=== PATIENT | female | born 1955 | race Caucasian/White ===

== ENCOUNTER 2022-01-13 20:51 | Emergency (ER) | payer MEDICARE, OTHER, SELFPAY ==
[2022-01-13 20:58] VITALS: BP 162/83; PULSE 92; RESP 18; TEMP 36.7; O2SAT 97; BMI 29.2
== END 2022-01-14 00:38 | disposition left against medical advice (07) ==
PROVIDERS: Emergency Provider Emergency Medicine
DX: L03.116 Cellulitis of left lower limb (principal)
CPT/HCPCS: 99281

== ENCOUNTER 2022-01-15 07:28 | Observation (INO) | payer MEDICARE, OTHER, SELFPAY ==
[2022-01-15] VITALS (7 sets, daily range): BP systolic 96–144; BP diastolic 58–88; PULSE 63–78; RESP 16–18; TEMP 36.1–36.9; O2SAT 94–98; BMI 29.2
[2022-01-15 08:30] LABS: MANUAL DIFF FLAG NO
[2022-01-15 08:34] LABS: Basophils Percent Auto 0.2 % (0-2); Eosinophils Absolute Auto 0.3 X10*3/uL (0.0-0.4); Eosinophils Percent Auto 6.2 % (0-4); Hematocrit 43.2 % (37.0-47.0); Hemoglobin 14.5 g/dl (12.0-16.0); Imm Gran Abs Auto 0.01 X10*3/uL (0.00-0.03); Imm Gran Pct Auto 0.2 % (0.0-0.4); Lymphocytes Percent Auto 22.2 % (20-40); Mean Corpuscular HGB Conc 33.6 g/dl (31.0-35.0); Mean Corpuscular Hemoglobin 28.8 pg (27.0-33.0); Mean Corpuscular Volume 85.7 fL (80.0-98.0); Mean Platelet Volume 9.5 fL (9.4-12.3); Monocytes Absolute Auto 0.4 X10*3/uL (0.1-1.2); Monocytes Percent Auto 9.2 % (2-11); Neutrophils Absolute Auto 2.7 x10*3/uL (2.0-8.3); Platelet Count 201 X10*3/uL (160-400); Red Blood Count 5.04 X10*6/uL (4.20-5.50); Red Cell Distribution Width 13.4 % (11.0-16.0); White Blood Count 4.4 X10*3/uL (4.8-10.8)
[2022-01-15 08:45] LABS: Anion Gap 13 (12-20); Blood Urea Nitrogen 12 mg/dL (9-16); Calcium 9.5 mg/dL (8.4-10.2); Carbon Dioxide 27 mmol/L (22-29); Chloride 105 mmol/L (96-108); Creatinine Clr Calc Pharmacy 47.8; Estimated Glomerular Filt Rate 57; Glucose Random 114 mg/dL (60-115); Potassium 4.1 mmol/L (3.3-5.1); Sodium 141 mmol/L (135-145)
--- NOTE | 2022-01-15 08:45 | ED_ITS ---
HPI - Skin/Abscess/Foreign Bdy General Chief complaint: Extremity Problem Stated complaint: infected bug bite Time Seen by Provider: 01/15/22 08:39 Source: patient Mode of arrival: ambulatory Limitations: no limitations History of Present Illness HPI narrative: 66 yo female with no medical history who presents to the ER for evaluation of a infected bug bite on the medial aspect of her left knee. She reports on Thursday afternoon she was sitting in her backyard reading a book when she all of a sudden noticed of very painful bug bite to the inside of her left knee. She smacked the bug, thinks she got bit again. She did not see with the bug was. She denies any resemblance of a tick left inside the bite. She almost immediately developed redness to the area. She reports when she woke up Thursday morning and the redness had spread to the back of her knee, and there is starting to developed fluid-filled bullae. She left work on Thursday and went to an urgent care where she was prescribed Bactrim and Keflex. She has been taking them and the infection has gotten worse. She now reports there is a large flu id-filled bulla with what appears to be pus and blood inside of it. She reports the redness is spreading. She denies any fever or chills. No nausea or vomiting MD complaint: insect bite/sting and abscess/boil Onset (ago): day(s) (4) Tetanus up to date: yes Location: LLE Severity: moderate Severity scale (1-10): 6 Quality: stabbing and aching Pain Consistency: constant Relieving factors: none Exacerbating factors: palpation and movement Context: witnessed insect bite Associated symptoms: itching Treatments prior to arrival: antibiotic Related Data Allergies Allergy/AdvReac Type Severity Reaction Status Date / Time No Known Allergies Allergy Verified 01/15/22 08:08 Review of Systems Review of Systems: Constitutional: No Fever, No Chills ENT/Mouth: No sore throat, No Rhinorrhea, No Swallowing Difficulty Eyes: No Eye Pain, No Swelling, No Redness Cardiovascular: No Chest Pain, No SOB, No Orthopnea, No Edema Respiratory: No Cough, No Sputum, No Wheezing, No dyspnea Gastrointestinal: No Nausea, No Vomiting, No Diarrhea, No abdominal Pain, No Hematochezia, No Melena Genitourinary: No Dysuria, No Urinary Frequency, No Hematuria Musculoskeletal: No joint pain, +Myalgias Skin: + Skin Lesions, +rash Neuro: No Weakness, No Numbness, No Dizziness, + Headache Psych: No Anxiety/Panic, No Depression Heme/Lymph: No Bruising, No Lymphadenopathy Endocrine: No Polyuria, No Polydipsia PMFSH Past Medical History Surgical History (Updated 01/15/22 @ 09:01 by Laura Dubois) Hx of cholecystectomy Social History Social History Patient Tobacco Use Status: Never used Tobacco Use of substances other than those prescribed or required for medical reasons: No Advance Directives: No Advance Directives Information Provided: No Physical Exam Vital Signs: Vital Signs: Last Vital Signs Temp 98.4 F 01/15/22 08:09 Pulse 78 01/15/22 08:09 Resp 16 01/15/22 08:09 BP 131/75 01/15/22 08:09 Pulse Ox 95 01/15/22 08:09 O2 Del Method 01/15/22 08:09 BMI result Body Mass Index 29.2 Appearance: Alert. Oriented X3. No acute distress. Eyes: Pupils equal, round and reactive to light. ENT: Pharynx normal. Neck: Normal inspection. Neck supple. CVS: Normal heart rate and rhythm. Pulses normal. Respiratory: No respiratory distress. Breath sounds normal. Abdomen: Soft and nontender. +BS x4 Skin: Skin warm and dry. Normal skin color. Normal skin turgor. No rashes. Extremities: left lower extremity with a large area of erythema and warmth medial to left knee. 3 small fluid filled bulla with a large bulla with purlent material within and purple color at the base. leaking serious fluid. full ROM of the knee. NV intact distally. see photo Neuro: Oriented X 3. No motor deficit. No sensory deficit. Course Course Course Narrative: 58-year-old female presenting to the ER with infected bug bite, clinical presentation is consistent with cellulitis and infected fluid-filled bulla. She failed outpatient treatment with p.o. Keflex and Bactrim. She is not septic at this time. Given progression of her symptoms and infection on oral antibiotics she will require admission for IV antibiotics. Will attempt to drain the pus filled bulla. Case d/w Dr. Ty. Reevaluation(s) Reevaluation #1: Unsuccessful drainage of the pustule. Only serous fluid returned. Case was discussed with Dr. Lopez who will be by to surgically debride and roof the wound. Will plan for admission for IV antibiotics. Tick-borne panel sent. WBC 4.4. LFTs added. Consultations Consultation #1: Surgery - Dr. Lopez MDM - Skin/Abscess/Foreign Bdy Lab Data Result diagrams: 01/15/22 08:23 01/15/22 08:23 Labs: Lab Results 01/15/22 01/15/22 01/15/22 Range/Units 08:23 08:23 09:16 WBC 4.4 L (4.8-10.8) X10*3/uL RBC 5.04 (4.20-5.50) X10*6/uL Hgb 14.5 (12.0-16.0) g/dl Hct 43.2 (37.0-47.0) % MCV 85.7 (80.0-98.0) fL MCH 28.8 (27.0-33.0) pg MCHC 33.6 (31.0-35.0) g/dl RDW 13.4 (11.0-16.0) % Plt Count 201 (160-400) X10*3/uL MPV 9.5 (9.4-12.3) fL Immature Gran % (Auto) 0.2 (0.0-0.4) % Neut % (Auto) 62.0 (45-73) % Lymph % (Auto) 22.2 (20-40) % [place] % (Auto) 9.2 (2-11) % Eos % (Auto) 6.2 H (0-4) % Baso % (Auto) 0.2 (0-2) % Lymph # (Auto) 1.0 L (1.2-4.9) X10*3/uL [place] # (Auto) 0.4 (0.1-1.2) X10*3/uL Eos # (Auto) 0.3 (0.0-0.4) X10*3/uL Baso # (Auto) 0.0 (0.0-0.2) X10*3/uL Abs Immat Gran (auto) 0.01 (0.00-0.03) X10*3/uL Absolute Neuts (auto) 2.7 (2.0-8.3) x10*3/uL Absolute Nucleated RBC 0.000 (0.0-0.012) X10*3/uL Nucleated RBC % (auto) 0.0 (0.0-0.2) /100WBC Sodium 141 (135-145) mmol/L Potassium 4.1 (3.3-5.1) mmol/L Chloride 105 (96-108) mmol/L Carbon Dioxide 27 (22-29) mmol/L Anion Gap 13 (12-20) BUN 12 (9-16) mg/dL Creatinine 0.97 (0.5-1.4) mg/dL Estim Creat Clear Calc 47.8 Estimated GFR 57 Random Glucose 114 (60-115) mg/dL Lactic Acid 1.0 (0.5-2.0) mmol/L Calcium 9.5 (8.4-10.2) mg/dL COVID-19 ([facility]ALAN) (Negative) COVID-19 Clin Com 01/15/22 Range/Units 09:47 WBC (4.8-10.8) X10*3/uL RBC (4.20-5.50) X10*6/uL Hgb (12.0-16.0) g/dl Hct (37.0-47.0) % MCV (80.0-98.0) fL MCH (27.0-33.0) pg MCHC (31.0-35.0) g/dl RDW (11.0-16.0) % Plt Count (160-400) X10*3/uL MPV (9.4-12.3) fL Immature Gran % (Auto) (0.0-0.4) % Neut % (Auto) (45-73) % Lymph % (Auto) (20-40) % [place] % (Auto) (2-11) % Eos % (Auto) (0-4) % Baso % (Auto) (0-2) % Lymph # (Auto) (1.2-4.9) X10*3/uL [place] # (Auto) (0.1-1.2) X10*3/uL Eos # (Auto) (0.0-0.4) X10*3/uL Baso # (Auto) (0.0-0.2) X10*3/uL Abs Immat Gran (auto) (0.00-0.03) X10*3/uL Absolute Neuts (auto) (2.0-8.3) x10*3/uL Absolute Nucleated RBC (0.0-0.012) X10*3/uL Nucleated RBC % (auto) (0.0-0.2) /100WBC Sodium (135-145) mmol/L Potassium (3.3-5.1) mmol/L Chloride (96-108) mmol/L Carbon Dioxide (22-29) mmol/L Anion Gap (12-20) BUN (9-16) mg/dL Creatinine (0.5-1.4) mg/dL Estim Creat Clear Calc Estimated GFR Random Glucose (60-115) mg/dL Lactic Acid (0.5-2.0) mmol/L Calcium (8.4-10.2) mg/dL COVID-19 ([facility]ALAN) Negative (Negative) COVID-19 Clin Com See Note Procedures Abscess I/D Site: lower extremity Side (if applicable): left Technique: incised with blade Sent for culture/gram staining?: Yes Irrigation: Yes Packing used?: none Complications: pain Critical Care Time Critical Care Time Critical Care Time: No Discharge Plan Discharge Clinical Impression: Cellulitis, Bug bite with infection Patient Disposition: Admitted As Inpatient
[2022-01-15] MEDS: Piperacillin Sodium/Tazobactam 3.375 GM in 0.9 % Sodium Chloride 50 ML IV (09:24)
[2022-01-15] MEDS: Lidocaine 4 % Cream KIT 1 APPL TOPICAL (09:32)
[2022-01-15 10:16] LABS: COVID-19 Test Negative (Negative); IDNOW Serial# 16C4AD1C
--- NOTE | 2022-01-15 10:34 | PC.NURSE ---
henri for pharmacy to make the vancomycin
--- NOTE | 2022-01-15 10:56 | PHA.MEDREC ---
Pharmacy Consult ? Medication Reconciliation Pharmacy has completed the medication reconciliation. spoke with patient in ED. Patient started antibiotics on thursday01/13/22
--- NOTE | 2022-01-15 11:03 | P.CONGS_ITS ---
History of Present Illness Consult details Consult date: 01/15/22 Requesting physician: Shirley Toro Narrative: 66-year-old female patient status post insect bite to the medial right knee. She was outside at the time of the bite (Thursday) and immediately felt a sharp pinch. By insisting she slapped the insect and wiped it away. She could not identify the type of insect but did not feel he was spider. She suspects a white faced hornet. She immediately noted pain and swelling in the leg. On Thursday she was evaluated at the walk-in clinic. She was placed on Keflex. Over the next 2 days increased swelling and blistering was noted at the bite site. She also noted redness in the surrounding skin which brought her to the Emergency room today. She denies fever or chills. She is being admitted to the hospitalist service for IV antibiotics. Laboratories revealed WBC of 4.4 and lactic acid of 1.0. Review of Systems Review of Systems: Yes all other systems are reviewed and are negative Integumentary/Breasts: Skin/Breast: Reports as per [facility] Surgical History Surgical History Hx of cholecystectomy Social History Social History Patient Tobacco Use Status: Never used Tobacco Use of substances other than those prescribed or required for medical reasons: No Advance Directives: No Advance Directives Information Provided: No Meds Allergies Allergy/AdvReac Type Severity Reaction Status Date / Time No Known Allergies Allergy Verified 01/15/22 08:08 Active Medications: Current Medications Pharmacy Consult (Consult Rx Vancomycin Dosing) 1 each MISCELLANE DAILY PRN PRN Reason: Consult order Pharmacy Consult (Consult Rx Perform Med Rec) 1 each MISCELLANE ONCE PRN PRN Reason: Consult order Sodium Chloride (0.9 % Sodium Chloride Flush 3 Ml Syringe) 3 ml [facility] [place] Home Medications Medication Instructions Recorded Confirmed Last Taken Type cephalexin 500 mg capsule 1 cap PO BID 01/15/22 01/15/22 01/14/22 History cyanocobalamin (vitamin B-12) 1,000 mcg PO DAILY 01/15/22 01/15/22 01/14/22 History 1,000 mcg tablet sulfamethoxazole 800 1 tab PO BID 01/15/22 01/15/22 01/14/22 History mg-trimethoprim 160 mg tablet Physical Exam Vital Signs: Vital Signs: Last Vital Signs Temp 98.4 F 01/15/22 08:09 Pulse 78 01/15/22 08:09 Resp 16 01/15/22 08:09 BP 131/75 01/15/22 08:09 Pulse Ox 95 01/15/22 08:09 O2 Del Method 01/15/22 08:09 BMI result Body Mass Index 29.2 Const: General: no acute distress and well developed Nutritional Appearance: well nourished Orientation/consciousness: patient oriented x3 Limitations: no limitations HEENT: Head: Yes normocephalic and Yes atraumatic Ears: hearing grossly normal bilaterally Resp: Effort & Inspection: normal respiratory effort, no audible wheezes, no cough and no respiratory distress GI: Inspection: Yes normal to inspection Skin: Other: Warm, dry, rash in the left medial calf and thigh as noted below Neuro: General: patient oriented x3 Extrem: Knee images: 1. area of blistering and desquamated skin . No evidence of abscess 2. cellulitis surrounding the blistering. No necrotic skin identified. Results Labs Result diagrams: 01/15/22 08:23 01/15/22 08:23 Labs: Abnormal lab results 01/15/22 Range/Units 08:23 WBC 4.4 L (4.8-10.8) X10*3/uL Eos % (Auto) 6.2 H (0-4) % Lymph # (Auto) 1.0 L (1.2-4.9) X10*3/uL Short CBC 01/15/22 Range/Units 08:23 WBC 4.4 L (4.8-10.8) X10*3/uL Hgb 14.5 (12.0-16.0) g/dl Hct 43.2 (37.0-47.0) % Plt Count 201 (160-400) X10*3/uL BMP 01/15/22 08:23 Sodium 141 Potassium 4.1 Chloride 105 Carbon Dioxide 27 BUN 12 Creatinine 0.97 Calcium 9.5 All other labs normal. Assessment and Plan (1) Cellulitis: Status: Acute (2) Bug bite with infection: Status: Acute Plan 66-year-old female patient with probable insect bite possibly hornet by with resulting skin blistering and cellulitis. Agree with admission for IV antibiotics and further monitoring of the blister progression. An attempted incision and drainage was performed today with no abscess identified. This does appear to be more of a blister rather than abscess. No debridement is required at this time. I will monitor the wound and follow her after discharge. Procedures Date of Service Date of Service: 01/15/22
--- NOTE | 2022-01-15 11:06 | P.HPHOSP_ITS ---
History of Present Illness Date of Service: 01/15/22 Attending physician on admission: Broderick Childs Chief Complaint: cellulitis and abscess Patient without significant medical history with cellulitis and abscess to the medial left upper leg following insect bite 4 days ago being admitted for I&D and IV antibitoics. She reports being bit multiple times by an unknown insect after attempting to swap the bug away multiple times. Insect did not remain attached to skin. Redness around the bite progressively worsened and developed clear fluid filled blisters at the medial knee. She presented to an urgent care and where she was prescribed keflex and bactrim for cellulitis 2 days ago. Later that night she developed a larger fluid filled bulla with pus and blood. She presented that same night [place] [facility] but did not wait for evaluation. She has continued on the keflex and bactrim as prescribed with limited improvement in her symptoms. Feels the area is still swollen and tender with minimal improvement in the redness in bullae. States she felt warm but no true fevers. No rigors. She is able to ambulate. 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 No history of similar infections. No leukocytosis. Review of Systems Review of Systems: Yes all other systems are reviewed and are negative [facility] Medical History (Updated 01/15/22 @ 11:33 by SAURAV Rubio) No pertinent past medical history Family History (Updated 01/15/22 @ 11:34 by SAURAV Rubio) Mother Stroke Myocardial infarct Father Diabetes ESRD (end stage renal disease) Surgical History Hx of cholecystectomy Social History Patient Tobacco Use Status: Never used Tobacco Use of substances other than those prescribed or required for medical reasons: No Advance Directives: No Advance Directives Information Provided: No Meds Allergies Allergy/AdvReac Type Severity Reaction Status Date / Time No Known Allergies Allergy Verified 01/15/22 08:08 Active Medications: Current Medications Vancomycin HCl 1,000 mg/ (Sodium Chloride) 270 mls @ 270 mls/hr IV Q12H [facility] Pharmacy Consult (Consult Rx Vancomycin Dosing) 1 each MISCELLANE DAILY PRN PRN Reason: Consult order Pharmacy Consult (Consult Rx Perform Med Rec) 1 each MISCELLANE ONCE PRN PRN Reason: Consult order Pharmacy Consult (Consult Rx Vancomycin Dosing) 1 each MISCELLANE DAILY PRN PRN Reason: Consult order Sodium Chloride (0.9 % Sodium Chloride Flush 3 Ml Syringe) 3 ml IVFLUSH QSHIFT COUNT [facility] Home Medications Medication Instructions Recorded Confirmed Last Taken Type cephalexin 500 mg capsule 1 cap PO BID 01/15/22 01/15/22 01/14/22 History cyanocobalamin (vitamin B-12) 1,000 mcg PO DAILY 01/15/22 01/15/22 01/14/22 History 1,000 mcg tablet sulfamethoxazole 800 1 tab PO BID 01/15/22 01/15/22 01/14/22 History mg-trimethoprim 160 mg tablet Physical Exam Vital Signs and Narrative: Vital Signs: Last Vital Signs Temp 98.4 F 01/15/22 08:09 Pulse 78 01/15/22 08:09 Resp 16 01/15/22 08:09 BP 131/75 01/15/22 08:09 Pulse Ox 95 01/15/22 08:09 O2 Del Method 01/15/22 08:09 BMI result Body Mass Index 29.2 Const: Other: Constitutional - Awake and Alert, No apparent distress Eyes - PERRLA, EOMI Cardiovascular - S1S2, RRR, No edema Respiratory - Normal lung expansion, Normal respiratory effort, No respiratory distress, CTA bilaterally Gastrointestinal - NT / ND; +BS; No rebound or guarding - No CVA tenderness Extremities - no calf tenderness bilaterally, no swelling Musculoskeletal - Normal inspection, normal ROM Skin - Warm/Dry. See photo Neurological - Alert & oriented x3, No focal deficit Psychological - Appropriate affect Results Labs CBC and Chem 7: 01/15/22 08:23 01/15/22 08:23 Labs: Laboratory Results - last 24 hr 01/15/22 01/15/22 01/15/22 08:23 08:23 09:16 MCV 85.7 MCH 28.8 MCHC 33.6 RDW 13.4 Plt Count 201 MPV 9.5 Immature Gran % (Auto) 0.2 Neut % (Auto) 62.0 Lymph % (Auto) 22.2 [place] % (Auto) 9.2 Eos % (Auto) 6.2 H Baso % (Auto) 0.2 Lymph # (Auto) 1.0 L [place] # (Auto) 0.4 Eos # (Auto) 0.3 Baso # (Auto) 0.0 Abs Immat Gran (auto) 0.01 Absolute Neuts (auto) 2.7 Absolute Nucleated RBC 0.000 Nucleated RBC % (auto) 0.0 Anion Gap 13 Estim Creat Clear Calc 47.8 Estimated GFR 57 Random Glucose 114 Lactic Acid 1.0 Calcium 9.5 COVID-19 ([facility]AN) COVID-19 Clin Com 01/15/22 09:47 MCV MCH MCHC RDW Plt Count MPV Immature Gran % (Auto) Neut % (Auto) Lymph % (Auto) [place] % (Auto) Eos % (Auto) Baso % (Auto) Lymph # (Auto) [place] # (Auto) Eos # (Auto) Baso # (Auto) Abs Immat Gran (auto) Absolute Neuts (auto) Absolute Nucleated RBC Nucleated RBC % (auto) Anion Gap Estim Creat Clear Calc Estimated GFR Random Glucose Lactic Acid Calcium COVID-19 ([facility]ALAN) Negative COVID-19 Clin Com See Note Assessment and Plan (1) Cellulitis: Status: Acute (2) Bug bite with infection: Status: Acute Plan Patient without significant medical history admitted for cellulitis following unknown insect bite. 1. Infected insect bite with LLE cellulitis -Evaluated by general surgery and note reviewed. Bullae not felt to be abscess. I&D not indicated per surgery -No evidence of sepsis. Patient will be admitted for observation and will continue on vancomycin for MRSA coverage with remote history of IVDA. -Low suspicion for tickborne illness as insect was not attached, however tick panel pending DVT prophylaxis- ambulation, mechanical Full code Quality Stroke Does the patient have a stroke diagnosis?: No VTE Prior VTE?: No VTE Risk Level:: Medical - low VTE Device Contraindication: N/A - Device Ordered VTE Drug Contraindication: Treatment Not Indicated
[2022-01-15] MEDS: vancomycin HCL 1,000 MG, vancomycin HCL 750 MG in 0.9 % Sodium Chloride 500 ML 267.5 MG IV (11:58)
--- NOTE | 2022-01-15 12:21 | PHA.PROG ---
Admission Date/Time: January 15, 2022 10:50 Indication: Cellulitis Weight in k.039 kg Adjusted body weight in K.516 [place] body weight in K.5 Obesity Dosing Indication % IBW: 1.49% OBESE Serum Creatinine - Last 168 Hours 01/15/22 08:23 Creatinine 0.97 Estimated CrCl and GFR - Last 168 Hours 01/15/22 08:23 Estim Creat Clear Calc 47.8 Estimated GFR 57 Vancomycin Loading Dose: 1750mg Current Vancomycin Dosing Regimen: 1000mg Q24 Vancomycin Monitoring using AUC goal of 400 - 600 range with trough as surrogate marker: 532 mg/L/hr Date and Time for next Vancomycin Level to be drawn: 01/17 @ 1000 Pharmacist Comments on Vancomycin Plan: Patient was given a proper load. Obese model being used. Q24 dosing chosen because patient is over 65 years old. Would have liked to be a little bit more conservative side with this, however, 750mg Q24 predicted an AUC of 403 mg/L/hr which would be very very low on the therapeutic side of 400-600. Typically I would like to see an AUC of 450-500 mg/L/hr for a diagnosis of cellulitis. Given the higher AUC of 532 mg/L/hr I plan to have a random level drawn on 01/17 @1000 right before the third dose of vancomycin. Once level is obtained dose will be manipulated to ensure safety vs efficacy. Vancomycin dosing will take advantage of [employer] as a clinical decision support tool that uses Bayesian modeling to calculate individual patient's pharmacokinetic parameters and forecast the patient's drug concentration time course with the target goal AUC 24 range of 400 - 600 mg/L/hr.
--- NOTE | 2022-01-15 13:12 | PC.NURSE ---
Pt receiving Vancomycin 1750ml, developed itchy red, rash within a hour to head and back.. No signs of respiratory distress.
[2022-01-15] MEDS: diphenhydrAMINE HCL 50 MG/ML VIAL 25 MG IVPUSH (13:18)
[2022-01-15 13:33] LABS: Alanine Aminotransferase 13 U/L (0-31); Albumin Level 4.5 g/dL (3.5-5.0); Alkaline Phosphatase 66 U/L (39-117); Aspartate Amino Transferase 18 U/L (5-31); Bilirubin Direct 0.2 mg/dL (0.0-0.5); Bilirubin Total 0.5 mg/dL (0.0-1.0); Total Protein 7.5 g/dL (6.5-8.0)
--- NOTE | 2022-01-15 15:58 | PC.NURSE ---
Called to give report to nurse on floor. Nurse to call ED back
--- NOTE | 2022-01-15 16:23 | PC.NURSE ---
report called, room not cleaned, nurse will call when room is ready
[2022-01-15] MEDS: 0.9 % Sodium Chloride Flush 3 ML SYRINGE IVFLUSH ×2 (17:06→20:10)
[2022-01-16 03:24] VITALS: BP 110/57; PULSE 77; RESP 18; TEMP 36.1; O2SAT 94
[2022-01-16 06:24] LABS: Creatinine Clr Calc Pharmacy 50.8; Estimated Glomerular Filt Rate > 60
[2022-01-16 07:33] VITALS: BP 108/59; PULSE 71; RESP 18; TEMP 36.4; O2SAT 98
--- NOTE | 2022-01-16 07:59 | P.PNGS_ITS ---
Subjective Subjective Date of Service: 01/16/22 Interval history: Patient with no new complaints. Feels slightly improved continues to note some pain associated with the bite in her left leg. Physical Exam Vital Signs: Vital Signs: Last Vital Signs Temp 97.6 F 01/16/22 07:33 Pulse 71 01/16/22 07:33 Resp 18 01/16/22 07:33 BP 108/59 L 01/16/22 07:33 Pulse Ox 98 01/16/22 07:33 O2 Del Method 01/16/22 07:33 BMI result Body Mass Index 29.2 Const: General: no acute distress and well developed Nutritional Appearance: well nourished Orientation/consciousness: patient oriented x3 Limitations: no limitations Resp: Effort & Inspection: normal respiratory effort, no audible wheezes, no cough and no respiratory distress Skin: General skin exam: erythema and induration Neuro: General: patient oriented x3 Extrem: Other: Left leg wound essentially unchanged with area of surrounding erythema, blistering at site of bite. Lesion is no larger however. Two small blisters below larger yellow collection. No drainage noted. Knee images: 1. 2. Objective Data Active Medications Vancomycin HCl 1,000 mg/ (Sodium Chloride) 270 mls @ 270 mls/hr IV Q24H [facility] Pharmacy Consult (Consult Rx Vancomycin Dosing) 1 each MISCELLANE DAILY PRN PRN Reason: Consult order Pharmacy Consult (Consult Rx Perform Med Rec) 1 each MISCELLANE ONCE PRN PRN Reason: Consult order Pharmacy Consult (Consult Rx Vancomycin Dosing) 1 each MISCELLANE DAILY PRN PRN Reason: Consult order Sodium Chloride (0.9 % Sodium Chloride Flush 3 Ml Syringe) 3 ml IVFLUSH QSHIFT [facility] Last Admin: 01/15/22 20:10 Dose: 3 ml Documented By: JOSE Labs CBC & Chem 7: 01/15/22 08:23 01/16/22 05:36 Labs: Laboratory Results - last 24 hr 01/15/22 01/15/22 01/15/22 08:23 08:23 09:16 MCV 85.7 MCH 28.8 MCHC 33.6 RDW 13.4 Plt Count 201 MPV 9.5 Immature Gran % (Auto) 0.2 Neut % (Auto) 62.0 Lymph % (Auto) 22.2 [place] % (Auto) 9.2 Eos % (Auto) 6.2 H Baso % (Auto) 0.2 Lymph # (Auto) 1.0 L [place] # (Auto) 0.4 Eos # (Auto) 0.3 Baso # (Auto) 0.0 Abs Immat Gran (auto) 0.01 Absolute Neuts (auto) 2.7 Absolute Nucleated RBC 0.000 Nucleated RBC % (auto) 0.0 Anion Gap 13 Estim Creat Clear Calc 47.8 Estimated GFR 57 Random Glucose 114 Lactic Acid 1.0 Calcium 9.5 Total Bilirubin 0.5 Direct Bilirubin 0.2 AST 18 ALT 13 Alkaline Phosphatase 66 Total Protein 7.5 Albumin 4.5 COVID-19 ([facility]) COVID-19 Clin Com 01/15/22 01/16/22 09:47 05:36 MCV MCH MCHC RDW Plt Count MPV Immature Gran % (Auto) Neut % (Auto) Lymph % (Auto) [place] % (Auto) Eos % (Auto) Baso % (Auto) Lymph # (Auto) [place] # (Auto) Eos # (Auto) Baso # (Auto) Abs Immat Gran (auto) Absolute Neuts (auto) Absolute Nucleated RBC Nucleated RBC % (auto) Anion Gap Estim Creat Clear Calc 50.8 Estimated GFR > 60 Random Glucose Lactic Acid Calcium Total Bilirubin Direct Bilirubin AST ALT Alkaline Phosphatase Total Protein Albumin COVID-19 ([facility]ALAN) Negative COVID-19 Clin Com See Note Microbiology Microbiology Results: Microbiology 01/15/22 09:23 Gram Stain - Final Leg Left 01/15/22 09:15 Blood Culture - Final Blood - Venous 01/15/22 08:59 Blood Culture - Final Blood - Venous Procedures Date of Service Date of Service: 01/16/22 Progress Note: A&P Assessment and plan (1) Bug bite with infection: Status: Acute (2) Cellulitis: Status: Acute Plan 66-year-old female patient, S/P but bite to left leg approximately 4 days ago. Patient has an area of blistering and surrounding cellulitis which is stable today. Incision and drainage in the emergency department negative for abscess. No evidence of abscess at this time. Blister may need to be debrided but I recommended observation for now with continued IV antibiotics. I will continue to monitor. Time Spent With Patient Time: Total time spent is greater than 50% in coordination of care (as documented) at patient's floor/unit and/or counseling patient: Quality Stroke Does the patient have a stroke diagnosis?: No VTE Prior VTE?: No VTE Risk Level:: Medical - low VTE Device Contraindication: N/A - Device Ordered VTE Drug Contraindication: Treatment Not Indicated
--- NOTE | 2022-01-16 08:09 | HE.PHANOTE ---
Vancomycin Dosing Addendum Patients rental function is down to 0.91 from 0.97. Patient has a level to be drawn 01/17 @1000. Will continue with dose 1000mg Q24. Predicted AUC 499 mg/L/hr. Will reassess dose if needed once level is in.
--- NOTE | 2022-01-16 11:31 | MHC.CM.PN ---
OZZY addressed original given to patient and copy filed in chart. Patient reports she lives with family. She is employed, independent, drives, and does not have any services at home.She is Crista velazquez'edwin x2 (MRNA), PCP is Elisha Huber. She will drive herself home. HCP has been completed, original and copies given to patient, copy filed in chart, and copy uploaded to [employer]. D/C plan is Home (self-care).
[2022-01-16] MEDS: vancomycin HCL 1,000 MG in 0.9 % Sodium Chloride 250 ML 270 MG IV (11:48)
[2022-01-16 11:50] VITALS: BP 115/64; PULSE 78; RESP 18; TEMP 36.2; O2SAT 96
--- NOTE | 2022-01-16 11:53 | P.PNIM_ITS ---
Subjective Subjective Date of Service: 01/16/22 <SAURAV Rubio - Last Filed: 01/16/22 13:00> 01/17/22 <Hung Hope MD - Last Filed: 01/17/22 11:31> Interval History: Patient without significant medical history admitted for management of cellulitis following insect bites. Prior to admission had been taking oral Keflex and Bactrim without much improvement in symptoms. Has been evaluated by General surgery and blisters not thought to be abscess. Tolerating IV vancomycin. Wound culture preliminary result is negative. Blood cultures negative x2. Redness continues to steadily improve. Does continue with mild swelling and tenderness to palpation. Blisters remain intact. Patient remains afebrile. <SAURAV Rubio - Last Filed: 01/16/22 13:00> Review of Systems Review of Systems: Yes all other systems are reviewed and are negative <SAURAV Rubio - Last Filed: 01/16/22 13:00> Physical Exam Vital Signs: Vital Signs: Last Vital Signs Temp 97.2 F 01/16/22 11:50 Pulse 78 01/16/22 11:50 Resp 18 01/16/22 11:50 BP 115/64 01/16/22 11:50 Pulse Ox 96 01/16/22 11:50 O2 Del Method 01/16/22 11:50 BMI result Body Mass Index 29.2 <SAURAV Rubio - Last Filed: 01/16/22 13:00> Constitutional - Awake and Alert, No apparent distress Cardiovascular - S1S2, RRR, No edema Respiratory - Normal lung expansion, Normal respiratory effort, No respiratory distress, CTA bilaterally Extremities - no calf tenderness bilaterally, mild swelling and erythema of the medial left lower extremity with 3 in tact blisters with serous fluid and larger central in tact bulla with mixed purulent and sanguinous fluids. See photo Skin - Warm/Dry. See extrem exam and photo Neurological - Alert & oriented <SAURAV Rubio - Last Filed: 01/16/22 13:00> Objective Data Active Medications Vancomycin HCl 1,000 mg/ (Sodium Chloride) 270 mls @ 270 mls/hr IV Q24H [facility] Pharmacy Consult (Consult Rx Vancomycin Dosing) 1 each MISCELLANE DAILY PRN PRN Reason: Consult order Pharmacy Consult (Consult Rx Perform Med Rec) 1 each MISCELLANE ONCE PRN PRN Reason: Consult order Pharmacy Consult (Consult Rx Vancomycin Dosing) 1 each MISCELLANE DAILY PRN PRN Reason: Consult order Sodium Chloride (0.9 % Sodium Chloride Flush 3 Ml Syringe) 3 ml IVFLUSH QSHIFT [facility] Last Admin: 01/15/22 20:10 Dose: 3 ml Documented By: JOSE <SAURAV Rubio - Last Filed: 01/16/22 13:00> Labs CBC & Chem 7: : 01/15/22 08:23 01/17/22 05:34 <SAURAV Rubio - Last Filed: 01/16/22 13:00> Labs: Laboratory Results - last 24 hr 01/15/22 01/16/22 08:23 05:36 Estim Creat Clear Calc 50.8 Estimated GFR > 60 Total Bilirubin 0.5 Direct Bilirubin 0.2 AST 18 ALT 13 Alkaline Phosphatase 66 Total Protein 7.5 Albumin 4.5 <SAURAV Rubio - Last Filed: 01/16/22 13:00> Microbiology Microbiology Results: Microbiology 01/15/22 08:23 Blood Culture - Preliminary Blood - Venous No growth after 24 hours. 01/15/22 09:23 Gram Stain - Final Leg Left Routine Culture - Preliminary No growth to date. 01/15/22 09:15 Blood Culture - Final Blood - Venous 01/15/22 08:59 Blood Culture - Final Blood - Venous <SAURAV Rubio - Last Filed: 01/16/22 13:00> Assessment and Plan (1) Cellulitis: Status: Acute <SAURAV Rubio - Last Filed: 01/16/22 13:00> (2) Bug bite with infection: Status: Acute <SAURAV Rubio - Last Filed: 01/16/22 13:00> Assessment and Plan: Patient without significant medical history admitted to observation for cellulitis following unknown insect bite. 1. Infected insect bite with LLE cellulitis- improving -Gram stain negative on preliminary wound culture. Blood cultures negative. -Continue IV vancomycin with plan for discharge with oral antibiotics tomorrow. There is possibility that wound may require debridement once bulla ruptures which can be managed outpatient. -Low suspicion for tick bite but tick panel is pending DVT prophylaxis- ambulation, mechanical <SAURAV Rubio - Last Filed: 01/16/22 13:00> Quality Stroke Does the patient have a stroke diagnosis?: No <SAURAV Rubio - Last Filed: 01/16/22 13:00> VTE Prior VTE?: No <SAURAV Rubio - Last Filed: 01/16/22 13:00> VTE Risk Level:: Medical - low <SAURAV Rubio - Last Filed: 01/16/22 13:00> VTE Device Contraindication: N/A - Device Ordered <SAURAV Rubio - Last Filed: 01/16/22 13:00> VTE Drug Contraindication: Treatment Not Indicated <SAURAV Rubio - Last Filed: 01/16/22 13:00>
[2022-01-16] MEDS: 0.9 % Sodium Chloride Flush 3 ML SYRINGE IVFLUSH ×3 (12:05→20:59)
[2022-01-16 15:22] VITALS: BP 144/65; PULSE 73; RESP 17; TEMP 36.1; O2SAT 96
[2022-01-16 20:00] VITALS: BP 114/66; PULSE 72; RESP 17; TEMP 36.2; O2SAT 95
[2022-01-16 21:21] LABS: Lyme Abs Screen <0.90 index
[2022-01-16 23:48] VITALS: BP 120/59; PULSE 76; RESP 18; TEMP 36.1; O2SAT 95
[2022-01-17 03:11] VITALS: BP 121/65; PULSE 85; RESP 18; TEMP 36.4; O2SAT 95
[2022-01-17 07:06] LABS: Creatinine Clr Calc Pharmacy 57.9; Estimated Glomerular Filt Rate > 60
[2022-01-17 07:37] VITALS: BP 122/71; PULSE 76; RESP 18; TEMP 36.3; O2SAT 98
--- NOTE | 2022-01-17 08:14 | P.PNGS_ITS ---
Subjective Subjective Date of Service: 01/17/22 Interval history: Patient feels much improved today and feels the redness has decreased in size. Denies significant pain in the left leg. She is eager to go home. Physical Exam Vital Signs: Vital Signs: Last Vital Signs Temp 97.4 F 01/17/22 07:37 Pulse 76 01/17/22 07:37 Resp 18 01/17/22 07:37 BP 122/71 01/17/22 07:37 Pulse Ox 98 01/17/22 07:37 O2 Del Method 01/17/22 07:37 BMI result Body Mass Index 29.2 Const: General: healthy appearing and no acute distress Nutritional Appearance: well nourished Orientation/consciousness: patient oriented x3 Limitations: no limitations Resp: Effort & Inspection: normal respiratory effort Neuro: General: patient oriented x3 Extrem: Other: Left knee wound shows marked improvement in the erythema but decreased size of the blistering. No tenderness to palpation. Small amount of serous discharge noted on clothing. Objective Data Active Medications Vancomycin HCl 1,000 mg/ (Sodium Chloride) 270 mls @ 270 mls/hr IV Q24H [facility] Last Infusion: 01/16/22 12:51 Dose: 270 mls/hr Documented By: SULMA Pharmacy Consult (Consult Rx Vancomycin Dosing) 1 each MISCELLANE DAILY PRN PRN Reason: Consult order Pharmacy Consult (Consult Rx Perform Med Rec) 1 each MISCELLANE ONCE PRN PRN Reason: Consult order Pharmacy Consult (Consult Rx Vancomycin Dosing) 1 each MISCELLANE DAILY PRN PRN Reason: Consult order Sodium Chloride (0.9 % Sodium Chloride Flush 3 Ml Syringe) 3 ml IVFLUSH QSHIFT [facility] Last Admin: 01/16/22 20:59 Dose: 3 ml Documented By: JOSE Labs CBC & Chem 7: 01/15/22 08:23 01/17/22 05:34 Labs: Laboratory Results - last 24 hr 01/15/22 01/17/22 09:16 05:34 Estim Creat Clear Calc 57.9 Estimated GFR > 60 Lyme Screen IgG & IgM <0.90 Microbiology Microbiology Results: Microbiology 01/15/22 09:23 Gram Stain - Final Leg Left Routine Culture - Final No growth after 2 days 01/15/22 09:16 Blood Culture - Preliminary Blood - Venous No growth after 24 hours. 01/15/22 08:23 Blood Culture - Preliminary Blood - Venous No growth after 24 hours. Procedures Date of Service Date of Service: 01/17/22 Progress Note: A&P Assessment and plan (1) Cellulitis: Status: Acute (2) Bug bite with infection: Status: Acute Plan Patient continues to make improvement with IV antibiotics and probably ready for discharge to home today on oral antibiotics. I can follow her up in the office in 1 week and monitor for possible need for skin debridement. Patient expressed understanding and agrees with the plan. Discussed with hospitalist team as well. Time Spent With Patient Time: Total time spent is greater than 50% in coordination of care (as documented) at patient's floor/unit and/or counseling patient: Quality Stroke Does the patient have a stroke diagnosis?: No VTE Prior VTE?: No VTE Risk Level:: Medical - low VTE Device Contraindication: N/A - Device Ordered VTE Drug Contraindication: Treatment Not Indicated
--- NOTE | 2022-01-17 10:50 | P.DS_ITS ---
DS: Providers Provider Date of Service: 01/17/22 Date of admission: 01/15/22 10:50 Date of discharge: 01/17/22 Primary care physician: Elisha Huber MD Admitting clinician: Broderick Childs Attending physician on admission: Hung Hope Consults: 01/15/22 10:55 Consult to General Surgery Routine Consulting Provider: Dejon Lopez Reason for consultation: abscess LLE Has provider been notified: No Attending physician on discharge: [facility] Discharging clinician: Kristina Pennington DS: Diagnosis Discharge Diagnosis (1) Cellulitis: Status: Acute (2) Bug bite with infection: Status: Acute DS: Summary Hospital Course Hospital Course: Patient without significant medical history with cellulitis and abscess to the medial left upper leg following insect bite 4 days prior to admission. She reports being bit multiple times by an unknown insect after attempting to swap the bug away multiple times, possibly spider vs flying insect. Insect did not remain attached to skin. Redness around the bite progressively worsened and developed clear fluid filled blisters at the medial knee. Prescribed keflex and bactrim outpatient from local urgent care without improvement in symptoms. Developed large fluctuant blister filled with pus and blood prompting presentation to the ED. Limited expression of fluid with attempted incision. Question of large abscess vs bulla. General surgery consulted who did not feel this was consistent with abscess, surgical I&D not indicated. Admitted for IV vancomycin for cellulitis not improving with oral antibiotics. Hospital course uneventful. No leukocytosis. Vital signs stable. Blood cultures and wound culture negative. Improvement in cellulitis and size of bullae with 2 day course of IV vanco. She will be discharged on doxycycline 100mg BID x 7 days with recommended follow up with general surgery (Deshawn) in 2 weeks. Status at Discharge Functional status at discharge: independent ambulation Overall status at discharge: patient is progressing back to baseline Time Spent with Patient Time attestation: Total time spent providing and/or coordinating discharge services: Discharge coordination time: Less than 30 minutes Quality: Safe Use of Opioids Does Pt have an Active Cancer Diagnosis on the Problem List?: No Quality: Stroke Does the patient have a stroke diagnosis?: No Physical Exam Vital Signs: Vital Signs: Last Vital Signs Temp 97.4 F 01/17/22 07:37 Pulse 76 01/17/22 07:37 Resp 18 01/17/22 07:37 BP 122/71 01/17/22 07:37 Pulse Ox 98 01/17/22 07:37 O2 Del Method 01/17/22 07:37 BMI result Body Mass Index 29.2 Constitutional - Awake and Alert, No apparent distress Eyes - PERRLA, EOMI Cardiovascular - S1S2, RRR, No edema Respiratory - Normal lung expansion, Normal respiratory effort, No respiratory distress, CTA bilaterally Gastrointestinal - NT / ND; +BS; No rebound or guarding Extremities - no calf tenderness bilaterally, no swelling Musculoskeletal - Normal inspection, normal ROM Skin - Warm/Dry. Warmth and erythema of the medial left knee/thigh with mild localized swelling. 3 in tact bulla with serous fluid and larger central in tact bulla with mixed purulent and sanguinous fluids Neurological - Alert & oriented x3, No focal deficit Psychological - Appropriate affect DS: Data Data Completed and Pending Completed studies during hospitalization [Text1]: WBC 4.4 X10*3/uL (4.8-10.8) L 01/15/22 08:23 RBC 5.04 X10*6/uL (4.20-5.50) 01/15/22 08:23 Hgb 14.5 g/dl (12.0-16.0) 01/15/22 08:23 Hct 43.2 % (37.0-47.0) 01/15/22 08:23 MCV 85.7 fL (80.0-98.0) 01/15/22 08:23 MCH 28.8 pg (27.0-33.0) 01/15/22 08:23 MCHC 33.6 g/dl (31.0-35.0) 01/15/22 08:23 RDW 13.4 % (11.0-16.0) 01/15/22 08:23 Plt Count 201 X10*3/uL (160-400) 01/15/22 08:23 MPV 9.5 fL (9.4-12.3) 01/15/22 08:23 Immature Gran % (Auto) 0.2 % (0.0-0.4) 01/15/22 08:23 Neut % (Auto) 62.0 % (45-73) 01/15/22 08:23 Lymph % (Auto) 22.2 % (20-40) 01/15/22 08:23 [place] % (Auto) 9.2 % (2-11) 01/15/22 08:23 Eos % (Auto) 6.2 % (0-4) H 01/15/22 08:23 Baso % (Auto) 0.2 % (0-2) 01/15/22 08:23 Lymph # (Auto) 1.0 X10*3/uL (1.2-4.9) L 01/15/22 08:23 [place] # (Auto) 0.4 X10*3/uL (0.1-1.2) 01/15/22 08:23 Eos # (Auto) 0.3 X10*3/uL (0.0-0.4) 01/15/22 08:23 Baso # (Auto) 0.0 X10*3/uL (0.0-0.2) 01/15/22 08:23 Abs Immat Gran (auto) 0.01 X10*3/uL (0.00-0.03) 01/15/22 08:23 Absolute Neuts (auto) 2.7 x10*3/uL (2.0-8.3) 01/15/22 08: Absolute Nucleated RBC 0.000 X10*3/uL (0.0-0.012) 01/15/22 08: Nucleated RBC % (auto) 0.0 /100WBC (0.0-0.2) 01/15/22 08:23 Sodium 141 mmol/L (135-145) 01/15/22 08:23 Potassium 4.1 mmol/L (3.3-5.1) 01/15/22 08:23 Chloride 105 mmol/L (96-108) 01/15/22 08:23 Carbon Dioxide 27 mmol/L (22-29) 01/15/22 08:23 Anion Gap 13 (12-20) 01/15/22 08:23 BUN 12 mg/dL (9-16) 01/15/22 08:23 Creatinine 0.80 mg/dL (0.5-1.4) 01/17/22 05:34 Estim Creat Clear Calc 57.9 01/17/22 05:34 Estimated GFR > 60 01/17/22 05:34 Random Glucose 114 mg/dL (60-115) 01/15/22 08:23 Lactic Acid 1.0 mmol/L (0.5-2.0) 01/15/22 09:16 Calcium 9.5 mg/dL (8.4-10.2) 01/15/22 08:23 Total Bilirubin 0.5 mg/dL (0.0-1.0) 01/15/22 08:23 Direct Bilirubin 0.2 mg/dL (0.0-0.5) 01/15/22 08:23 AST 18 U/L (5-31) 01/15/22 08:23 ALT 13 U/L (0-31) 01/15/22 08:23 Alkaline Phosphatase 66 U/L (39-117) 01/15/22 08:23 Total Protein 7.5 g/dL (6.5-8.0) 01/15/22 08:23 Albumin 4.5 g/dL (3.5-5.0) 01/15/22 08:23 Pending studies at discharge: Tick panel including babesia, anaplasma, erlichia IgM and IgG Labs on day of discharge: Laboratory Results - last 24 hr 01/15/22 01/17/22 09:16 05:34 Creatinine 0.80 Estim Creat Clear Calc 57.9 Estimated GFR > 60 Lyme Screen IgG & IgM <0.90 Lyme Progressive Test TNP Preliminary micro results at discharge 01/15/22 08:23 Blood Culture - Preliminary Blood - Venous No growth after 48 hours. 01/15/22 09:16 Blood Culture - Preliminary Blood - Venous No growth after 24 hours. Discharge Plan Discharge Anticipated Discharge Date/Time: 01/17/22 12:00 Patient Disposition: Home, Self-Care Discharge Diagnosis: Cellulitis, insect bite infection Referrals: Elisha Huber MD [Primary Care Provider] - 1 Week Dejon Lopez MD [Physician] - 2 Weeks (call ) Discharge Medications: New doxycycline monohydrate 100 mg capsule 100 mg PO BID Qty: 20 0RF Rx Instructions: Take with food and full glass water. Do not lie down for 1 hour Continued cyanocobalamin (vitamin B-12) 1,000 mcg Tablet 1,000 mcg PO DAILY Discontinued sulfamethoxazole-trimethoprim 800-160 mg tablet 1 tab PO BID Rx Instructions: Started 01/13/22 x 7 days cephalexin 500 mg capsule 1 cap PO BID Rx Instructions: Started 01/13/22 x 10 days Diet: Regular diet Activity on Discharge: As tolerated Stand Alone Forms: Patient Portal Discharge page Care Plan Goals: Full recovery from cellulitis Health Concerns: bug bite leadint to cellulitis Plan of Treatment: Take doxycycline twice daily as prescribed until entire course is completed. Take with food and full glass of water and do not lie down for 1 hour after taking the medication. Follow up with PCP in one week. Assessment: You had cellulitis that was treated with IV antibiotics in the hospital and now you are going home with oral doxycyline as above and follow up with your Doctor and Dr. Lopez in 2 weeks Patient Instructions: Cellulitis (DC)
--- NOTE | 2022-01-17 11:28 | MHC.CM.PN ---
PER MD ROUNDS, PT WILL DC HOME TODAY WITH PO ABX AND NO NEED FOR SERVICES PT WILL TRANSPORT HERSELF HOME
[2022-01-17 11:35] VITALS: BP 120/67; PULSE 66; RESP 18; TEMP 36.4; O2SAT 99
[2022-01-20 05:47] LABS: A. Phagocytophilum Ab IgG <1:64 (<1:64); A. Phagocytophilum Ab IgM <1:20 (<1:20); E. Chaffeensis Ab IgG <1:64 (<1:64); E. Chaffeensis Ab IgM <1:20 (<1:20)
[2022-01-21 06:57] LABS: Babesia IgG <1:64 titer (<1:64); Babesia IgM <1:20 titer (<1:20)
== END 2022-01-17 13:24 | disposition home or self-care (01) ==
LOC: HO.ED 10:49 → HO.EDOVER 11:03 → HO.S3 15:42
PROVIDERS: Physician Assistant; Admitting Provider Physician Assistant; Emergency Provider Emergency Medicine Emergency Medical Services; PCP Family Medicine; Visit Provider Physician Assistant
DX: L03.116 Cellulitis of left lower limb (principal); L03.115 Cellulitis of right lower limb; L08.9 Local infection of the skin and subcutaneous tissue, unspecified; R26.2 Difficulty in walking, not elsewhere classified; W57.XXXA Bitten or stung by nonvenomous insect and other nonvenomous arthropods, initial encounter; Z79.899 Other long term (current) drug therapy; Z20.822 Contact with and (suspected) exposure to COVID-19
CPT/HCPCS: 36415; 80048; 80076; 82565; 83605; 85025; 86617; 86618; 86666; 86753; 87040; 87071; 87205; 87635; 96365; 96366; 96375; 99218; 99285; J1200; J2543; J3370

== ENCOUNTER 2023-11-21 10:09 | Outpatient (AMB) | payer MEDICARE, OTHER, SELFPAY ==
--- OUTSIDE RECORDS SUMMARY | 2023-11-21 10:11 | XMS_ITS | Patient Health Record ---
[facility] Nany Mustafa Address [address] [place], [place] [address] Care Team Providers Care Bioassayist Name Role Phone Elisha Huber MD Primary Care Provider UnavailKhadra Real Unavailable [phone] ALLERGIES Allergen (clinical drug ingredient) Drug/Non Drug Allergy documented on EMR Reaction Allergy Type Onset Date Status clarithromycin Biaxin Unknown Drug Allergy Ac tive Novocain Unknown Drug Allergy Active Tylenol Unknown Drug Allergy Active azithromycin Zithromax Z-Chago Unknown Drug Allergy Active Adhesive Unknown Allergy Active aspirin Aspirin Unknown Drug Allergy Active erythromycin Erythromycin Unknown Drug Allergy A ctive Penicillin Unknown Drug Allergy Active REASON FOR REFERRAL No Information MEDICATIONS Medication SIG (Take, Route, Frequency, Duration) Notes Start Date End Date Status Ibuprofen PRN Active IMMUNIZATIONS Vaccine Route Administration Date Status Comme nts COVID-19 Moderna Vaccine Unknown 07/05/2020 Administered Second Dose: 08/02/2020 SOCIAL HISTORY Sex Assigned At : Social History Observation Description Sex Assigned At Unknown Alcohol Screen Question Answer Notes Did you have a drink containing alcohol in the p ast year? No Points 0 Interpretation Negative Tobacco use other than smoking: Question Answer Notes Are you an other tobacco user? No PROBLEMS Problem Type ICD Code Onset Dates Problem Status W/U Status Risk SNOMED Code Notes Problem Hallux valgus (acquired), right foot (M20.11) Active confirmed 850026608545768 Problem Neuritis of right foot (G57.91) Active confirmed 025078980488665 Problem Osteoarthritis of right ankle and foot (M19.071) Active confirmed 198326287289142 PLAN OF TREATMENT Pending Test Test Name Order Date X ray : Foot, right 3V 10/03/2020 Insurance Providers Payer Name Payer Address Payer Phone Subscriber Number Group Number Insured Name Patient Relationship to Insured Coverage Start Date Coverage End Date Medicare [employer] [address] [place] [address] [id number] Elisha Ramires Self - patient is the insured Formerly [facility] [address] [place] [phone] [id number] Elisha Ramires Self - patient is the insured MEDICAL (GENERAL) HISTORY Medical History History ICD Code Arthritis Chicken pox Gall bladder problems Macular degeneration thyroid Surgical History Surgery Date(Month/Year) gall bladder 07/2014 tonsils-complications trachectomy 1958
--- NOTE | 2023-11-21 10:48 | MHC.OFFWIV ---
Intake Vital Signs 11/21/23 10:54 Height 5 ft Weight 147 lb BMI 28.7 BP 130/74 Blood Pressure Location Rt brachial Position Sitting Pulse 80 Pulse Source Pulse Oximeter Temp 98.0 F Temp Source Oral Pulse Oximetry (%) 98 Oxygen Delivery Method Room Air Intake Visit Reasons: RE DYE HAND LT ankle/foot injury due to fall Patient Tobacco Use Status: Never used Tobacco Allergies No Known Allergies Allergy (Verified 11/21/23 10:54) Do you need a note to return to daycare/school/sports/work: No HPI RE DYE HAND LT ankle/foot injury due to fall HPI Details Patient is a 68-year-old female who is new to the walk-in, and comes today complaining of swelling and pain to the outside of her left ankle after twisting it yesterday. She states that she did not feel as much pain immediately after the injury, but with the swelling this morning she did take an ibuprofen which helped relieve her symptoms somewhat. She can walk on the extremity, however with some increased pain. She denies numbness or tingling or weakness to the extremity. [facility] Medical History No pertinent past medical history Surgical History Hx of cholecystectomy Family History Mother Stroke Myocardial infarct Father Diabetes ESRD (end stage renal disease) Social History Patient Tobacco Use Status: Never used Tobacco service: No Current occupational status: employed Review of Systems Const All systems reviewed & are unremarkable except as noted in HPI and below Physical Exam Vital Signs: Last Vital Signs Temp 98.0 F 11/21/23 10:54 Pulse 80 11/21/23 10:54 BP 130/74 11/21/23 10:54 Pulse Ox 98 11/21/23 10:54 Oxygen Delivery Method Room Air 11/21/23 10:54 BMI result Body Mass Index 28.7 Const General: cooperative, healthy appearing, comfortable, no acute distress, alert, awake, Physically active and well groomed; No anxious, diaphoretic, ill appearing, intoxicated appearing, poor hygiene or tired appearing Nutritional Appearance: average body habitus Limitations: no limitations Skin Other: Good color, warm and dry Extrem Other: Left ankle with gross edema over the lateral malleolar area, and tenderness to palpation in that area as well as the anterior midfoot. She has no obvious bony tenderness to the malleolus, but there is some bony tenderness to the midfoot. The plantar aspect of the foot is not tender. No ecchymosis abrasions or lacerations. Neurovascularly intact distally with good cap refill and intact dorsalis pedis and posterior tibialis pulses. She is able to bear weight on the extremity with mildly antalgic gait Psych Appearance: grossly normal Mental Status: mental status grossly normal Speech and movement: Normal speech and movement present Affect: normal affect Attitude: cooperative Thought process: Normal thought process present Insight: Good insight present (Psych) Judgement: Good judgement present (Psych) Assessment & Plan Assessment & Plan (1) Left ankle sprain: Code(s): S93.402A - Sprain of unspecified ligament of left ankle, initial encounter Qualifiers: Encounter type: initial encounter Involved ligament of ankle: anterior talofibular ligament Qualified Code(s): S93.492A - Sprain of other ligament of left ankle, initial encounter Plan Patient is a 68-year-old female who is new to the walk-in, and recently sustained an injury to her left lateral malleolus and anterior midfoot. She has some soft tissue swelling around the lateral malleolus, but no acute fracture or dislocation seen on plain film x-ray today. I think she has a mild left ankle sprain. She should continue the ibuprofen that she started this morning, as needed for the next few days. We Lele wrapped the foot and put her in an air cast, which allowed her to ambulate without pain or difficulty. She did not require splints. I advised she rest the extremity, and ice every 2-4 hours with elevation. She can continue the compression and air cast as needed for the next week or 2. She knows to follow up if symptoms persist after that point, as she might need referral to ortho for further care. Medications: Discontinued doxycycline monohydrate Take with food and full glass water. Do not lie down for 1 hour Discontinued Reason: Patient Completed Course 100 mg PO BID 20 caps 0RF Coding Level of Care Code New Pt Level 4 (18847) Diagnoses Sprain of anterior talofibular ligament of left ankle, initial encounter S93.492A Encounter type: initial encounter Involved ligament of ankle: anterior talofibular ligament
[2023-11-21 10:54] VITALS: BP 130/74; PULSE 80; TEMP 36.7; O2SAT 98; BMI 28.7
== END 2023-11-21 12:07 | disposition home or self-care (01) ==
PROVIDERS: PCP Family Medicine; Visit Provider Physician Assistant Medical
DX: S93.492A Sprain of other ligament of left ankle, initial encounter (principal)
CPT/HCPCS: 99204

== ENCOUNTER 2023-11-21 11:30 | Outpatient (REF) | payer MEDICARE, OTHER, SELFPAY ==
--- NOTE | ~2023-11-21 | XR_ITS ---
EXAMINATION: XR FOOT, LEFT XR ANKLE, LEFT CLINICAL INFORMATION: Pain COMPARISON: None available. TECHNIQUE: 3 views left foot 3 views left ankle FINDINGS: No acute visible fracture or dislocation. Ankle mortise is symmetric. Plantar calcaneal heel spur. Spurring the dorsal midfoot. Multi joint arthritic changes. Joint space alignment are otherwise maintained. Soft tissue prominence along the lateral malleolus. XR/XR ankle LT 2V IMPRESSION: 1. No acute visible fracture or dislocation. 2. Soft tissue prominence along the lateral malleolus.
--- NOTE | ~2023-11-21 | XR_ITS ---
EXAMINATION: XR FOOT, LEFT XR ANKLE, LEFT CLINICAL INFORMATION: Pain COMPARISON: None available. TECHNIQUE: 3 views left foot 3 views left ankle FINDINGS: No acute visible fracture or dislocation. Ankle mortise is symmetric. Plantar calcaneal heel spur. Spurring the dorsal midfoot. Multi joint arthritic changes. Joint space alignment are otherwise maintained. Soft tissue prominence along the lateral malleolus. XR/XR foot LT min 3V IMPRESSION: 1. No acute visible fracture or dislocation. 2. Soft tissue prominence along the lateral malleolus.
== END 2023-11-21 11:31 | disposition home or self-care (01) ==
LOC: HO.HMGCX 11:30
PROVIDERS: PCP Family Medicine; Visit Provider Physician Assistant Medical
DX: S93.402A Sprain of unspecified ligament of left ankle, initial encounter (principal); M79.672 Pain in left foot; X58.XXXA Exposure to other specified factors, initial encounter; Y93.9 Activity, unspecified; Y92.9 Unspecified place or not applicable; Y99.9 Unspecified external cause status
CPT/HCPCS: 73600; 73630

== ENCOUNTER 2024-10-21 08:20 | Outpatient (AMB) | payer MEDICARE, OTHER, SELFPAY ==
--- NOTE | 2024-10-21 08:22 | MHC.OFFVIS ---
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 Patient states that her last injection gave her relief. She states ongoing pain for about a year. Patient notices that her pain is on the lateral aspect of the knee. She notices that her pain is worse when she is walking, bending, lifting her lag up to put a sock on. Patient hasn't tried any pain medications. IMPRESSION (MRI) 11/17/23: 1. complex tear, primarily horizontal involving the posterior two thirds the lateral meniscus. 2. Mild chondral thinning in the lateral tibiofemoral compartment. 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 Keyla bravo is a 69-year-old female who presents to the office today for evaluation of left knee pain. She was last seen at [facility] in November of 2023. She states that she had a cortisone injection at this time and did give her some relief. Unfortunately, her pain did return along the lateral aspect of the knee. She requested an MRI which was obtained and she was found to have a complex tear, primarily horizontal involving the posterior two thirds of the lateral meniscus. 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 No ecchymosis, erythema or joint effusion. Full range of motion. NVI. Office Procedures AMB Joint Injection/Aspiration Joint Injection/Aspiration Primary Site: right knee Prep: site was prepped using aseptic technique, ethochloride spray was applied and injection warnings given Injected: 80 mg of, DepoMedrol, with 8 mL of (2% plain lido ) and in the joint Approach Used: anterolateral Procedure: The patient tolerated the procedure well, but had some pain with the injection and there was some relief with the local anesthesia Coding - Large joint Procedure code (CPT) selection complete Assessment & Plan Assessment & Plan (1) Osteoarthritis of right knee: Code(s): M17.11 - Unilateral primary osteoarthritis, right knee Category: Medical (2) Right knee meniscal tear: Code(s): S83.206A - Unspecified tear of unspecified meniscus, current injury, right knee, initial encounter Category: Medical Plan While the office today, I discussed the treatment of a lateral meniscal tear in the setting of osteoarthritis. Surgical intervention is not recommended at this time and there is a possibility that with surgical intervention this could actually end up worsening her arthritic pain. She is a quite active 69-year-old. We discussed management of osteoarthritis and pain. The patient was offered a cortisone injection in the right knee with 80 mg of DepoMedrol. The patient was explained the risks, benefits, and alternatives to receiving this injection. After receiving consent for the injection, the patient had the procedure done while in the office today. The patient tolerated the procedure well with no complications. Follow-up will be p.r.n., or sooner if needed IMPRESSION (MRI) 11/17/23: 1. complex tear, primarily horizontal involving the posterior two thirds the lateral meniscus. 2. Mild chondral thinning in the lateral tibiofemoral compartment. X-rays of the left knee which were obtained while in the office today and were reviewed by me, Jessica Bronson PA-C, revealed osteoarthritis. Orders: Orders XR knee LT 3V Today M25.569 - Pain in unspecified knee Coding Level of Care Code New Pt Level 3 (11153) Diagnoses Osteoarthritis of right knee M17.11 Right knee meniscal tear S83.206A CPT Codes Coding - Large joint: 37163 - Large joint ([id number])
--- OUTSIDE RECORDS SUMMARY | 2024-10-21 08:24 | XMS_ITS | Patient Health Record ---
Author Organization Total [facility] Address [address] [place] [address] Support Name Relationship Address Phone CAROLYN ANDRES Guarantor Unknown [phone] Reason For Referral No Information Medications Medication SIG (Take, Route, Fr equency, Duration) Notes Start Date End Date Status Flonase 50MCG 2 Nasal daily for -3 [facility] 11/11/2011 Active predniSONE 10MG ORAL for -3 [facility] 11/11/2011 A ctive Problems Problem Type SNOMED Code ICD Code Onset Dates Problem Status W/U Status Risk Notes Problem Acute hepatitis C (352772249) Acute hepatitis C without mention of hepatic coma (070.51) Active confirmed Major Problem Disorder of function of stomach (096692281) Dyspepsia and other specified disorders of function of stomach (536.8) Active confirmed Diag Problem Backache (165921068) Unspecified backache (724.5) Active confirmed Major Problem Acne (03728124) Other acne (706.1) Active confirmed Other Problem Abdominal pain (21209292) Abdominal pain (789.0) Active confirmed Major Problem Right upper quadrant pain (801501859) Abdominal pain, right upper quadrant (789.01) Active confirmed Diag Problem Allergy (964330952) Allergy, unspecified not elsewhere classified (995.3) Active confirmed Diag Plan Of Treatment No Information Insurance Providers Payer Name Payer Address Payer Phone Subscriber Number Group Number Insured Name Patient Relationship to Insured Coverage Start Date Coverage End Date [employer] PLAN [address] [place], [place] [id number] CAROLYN NADRES Self - patient is the insured
--- OUTSIDE RECORDS SUMMARY | 2024-10-21 08:25 | XMS_ITS | Patient Health Record ---
Author Organization [facility] Nany Mustafa Address [address] [place], [place] [address] Care Team Providers Care Environmental Field Team Member Name Role Phone Elisha Huber MD Primary Care Provider Unavailab Khadra Morris Unavailable [phone] Allergies Allergen (clinical drug ingredient) Drug/Non Drug Allergy documented on EMR Reaction Allergy Type Onset Date Status Biaxin Unknown Drug Allergy Active Novocain Unknown Drug Allergy Active acetaminophen Tylenol Unknown Drug Allergy Act carmelo azithromycin Zithromax Z-Chago Unknown Drug Allergy Active Adhesive Unknown Allergy Active aspirin Aspirin Unknown Drug Allergy Active erythromycin Erythromycin Unknown Drug Allergy A ctive Penicillin Unknown Drug Allergy Active Reason For Referral No Information Medications Medication SIG (Take, Route, Frequency, Duration) Notes Start Date End Date Status Ibuprofen PRN Active Immunizations Vaccine Route Administration Date Status Comme nts COVID-19 Moderna Vaccine Unknown 07/05/2020 Administered Second Dose: 08/02/2020 Social History Alcohol Screen Question Answer Notes Did you have a drink containing alcohol in the p ast year? No Points 0 Interpretation Negative Tobacco use other than smoking: Question Answer Notes Are you an other tobacco user? No Problems Problem Type SNOMED Code ICD Code Onset Dates Problem Status W/U Status Risk Notes Problem 293804778359344 Hallux valgus (acquired), right foot (M20.11) Active confirmed Problem 914845414062431 Neuritis of righ t foot (G57.91) Active confirmed Problem 712532213276723 Osteoarthritis o f right ankle and foot (M19.071) Active confirmed Plan Of Treatment Pending Test Test Name Order Date X ray : Foot, right 3V 10/03/2020 Next Appt Details Provider Name:Khadra Fely gonzalez, 11/25/2024 09:30:00 AM, [address] [facility] [facility], [place], [address], Insurance Providers Payer Name Payer Address Payer Phone Subscriber Number Group Number Insured Name Patient Relationship to Insured Coverage Start Date Coverage End Date Medicare National Govt Sv[employer] Inc [address] [place] [address] [id number] KeylaElisha barajas Self - patient is the insured [employer] (Unicare) [address] [place] [address] [id number] Elisha Ramires Self - patient is the insured Medical (General) History Medical History History ICD Code Arthritis Chicken pox Gall bladder problems Macular degeneration thyroid Surgical History Surgery Date(Month/Year) gall bladder 07/2014 tonsils-complications trachectomy 1958
--- OUTSIDE RECORDS SUMMARY | 2024-10-21 08:25 | XMS_ITS | Data Portability ---
Author Organization [place] [facility],, YASEMIN COYLE MD Address [address] [place] [address] Assessment No assessment recorded. Plan of Treatment Reminders Order Date Submit Date Provider Last Modified By Organization Details Last Modified Time Details Appointments None record ed. Lab None record ed. Referral None record ed. Procedures None record ed. Surgeries None record ed. Imaging None record ed. Medication Orders None record ed. Patient TargetsNo targets recorded. Patient InstructionsNo instructions recorded. Reason for Referral None Reported. Medical Equipment None Reported. Allergies No known drug allergies Medications Name Sig Start Date Stop Date Status Note LastModified by Organization Details LastModified Time nitrofurantoin monohydrate/mac rocrystals 100 mg capsule TAKE 1 CAPSULE BY MOUTH TWICE A DAY FOR 7 DAYS active Not Available Not Available No t Available Vitals None Recorded Social History None recorded. Functional Status None recorded. Mental Status None recorded. Family History Nothing Reported. Medical History No medical history recorded. Gynecological HistoryNo gynecological history recorded. Obstetrics History GPAL:G 0 P 0 0 0 0 Immunizations Vaccine Type Date Status Note Provider Nam e and Address Organization Details Recorded Time COVID-19, mRNA, LNP-S, PF, 100 mcg/0.5mL dose or 50 mcg/0.25mL dose 07/05/2020 completed Yasemin Coyle MD [address], [place], [address], [facility] - [facility] in [facility], 07/05/2020 08:30:02 COVID-19, mRNA, LNP-S, PF, 100 mcg/0.5mL dose or 50 mcg/0.25mL dose 08/02/2020 completed Yasemin Coyle MD [address], [place], [address], [facility] - [facility] in [facility], 08/02/2020 09:06:29 Past Encounters Encounter ID Performer Location Encounter Start Date Encounter Closed Date Diagnosis/Indication Diagnosis SNOMED-CT Code Diagnosis ICD10 Code Diagnosis Note [id number] MD YASEMIN Tapia MD [address] [place] [id number] 07/05/2020 08:09:06 07/05/2020 08:38:08 Administration of viral vaccine [id number] Z23 [id number] MD YASEMIN Tapia MD [address] [place] [address] 08/02/2020 08:44:12 08/02/2020 09:13:50 Administration of viral vaccine 10740977 Z23 Health Concerns Section Related Observation LastModified by Organization Detai ls LastModified Time None Recorded Concern Status LastModified by Organization Details LastModified Time None Recorded Advance Directives Directive None Recorded Payers Encounter Date Sequence Insurance Name Policy Number Policy Colon Covered Member ID Colon Member ID Guarantor Name 07/05/2020 1 MEDICARE B-[place]: [employer] SERVICES Elisha Francoister [id number] Elisha Francoister 07/05/2020 2 UN[employer] - SENIOR SERVICES PLAN F (MEDICARE SUPPLEMENT) [id number] Elisha Francoister [id number] Elisha Francoister 08/02/2020 1 MEDICARE B-[place]: NATIONAL [employer]ERNMENT [employer] Elisha Francoister [id number] Elisha Keyla 08/02/2020 2 [employer] - SENIOR SERVICES PLAN F (MEDICARE SUPPLEMENT) [id number] Elisha Francoister [id number] Elisha Ramires OBGyn Episode No OBEpisode recorded.
== END 2024-10-21 09:18 | disposition home or self-care (01) ==
LOC: HO.HOS 08:21
PROVIDERS: PCP Family Medicine; Visit Provider Physician Assistant
DX: M17.11 Unilateral primary osteoarthritis, right knee (principal); S83.206A Unspecified tear of unspecified meniscus, current injury, right knee, initial encounter
CPT/HCPCS: 20610; 99203

== ENCOUNTER → 2024-10-21 08:22 | Outpatient (BNV) | payer MEDICARE, OTHER, SELFPAY | PROVIDERS: Visit Provider Radiology Diagnostic Radiology | DX: M17.12 Unilateral primary osteoarthritis, left knee (principal) | CPT/HCPCS: 73562 ==

== ENCOUNTER 2024-10-21 09:59 | Outpatient (REF) | payer MEDICARE, OTHER, SELFPAY ==
--- NOTE | ~2024-10-21 | XR_ITS ---
EXAMINATION: XR KNEE, LEFT CLINICAL INFORMATION: M25.569 - Pain in unspecified knee COMPARISON: None available. TECHNIQUE: AP view bilateral knees standing, lateral and patellofemoral views left knee. FINDINGS: RIGHT KNEE: No fracture or dislocation. Mild medial and lateral compartment narrowing. Normal alignment. Normal soft tissues. LEFT KNEE: No fracture, dislocation, or suspicious bone lesion. Mild right neural foraminal mental joint space narrowing. Mild lateral patellar tilt. Normal alignment. No joint effusion. Normal soft tissues XR/XR knee LT 3V IMPRESSION: 1. Mild tricompartmental osteoarthrosis left knee. No joint effusion. Electronically signed by: Phil Monaco MD 10/21/2024 08:36 AM EDT
--- OUTSIDE RECORDS SUMMARY | 2024-10-25 10:52 | XMS_ITS | Continuity of Care Document ---
Author Organization [facility] Timothy Laura Leighton lt Address [address] [place] [address]- Care Team Providers Care Front Loader Residential Driver Name Role Phone Herson KHAN, Yanet Webster [id number]17[facility]24 - 10/24/24 [facility] Timothy Laura Adult [address] [place] [address]- Encounter Diagnosis Depression, major, recurrent, mild(Discharge Diagnosis) - 10/17/24 Medicare annual wellness visit, subsequent(Discharge Diagnosis) - 10/17/24 Attending Physician: Yanet Bains NP Referring Physician: Armond Alvarado MD Encounter Type: Office Visit Allergies, Adverse Reactions, Alerts Substance Criticality Severity Reaction Reaction Severity Status EPINEPHrine Syncope Tachycardia Shaking Active Immunizations Given and Recorded Vaccine Date Status Refusal Reason zoster vaccine, inactivated 05/04/21 Recorded influenza virus vaccine, inactivated 05/04/21 Stef rded influenza virus vaccine, inactivated 05/01/16 Stef rded SARS-CoV-2 (COVID-19) mRNA-1273 vaccine 08/02/20 R ecorded SARS-CoV-2 (COVID-19) mRNA-1273 vaccine 07/05/20 R ecorded tetanus/diphtheria/pertussis, acel(Tdap) 1 09/16/12 Given 1Admin Note: vis given Problem List Condition Confirmation Course Effective Dates Status H ealth Status Informant History of hepatitis C Confirmed Active Depression, major, recurrent, mild Confirmed Active Osteoarthritis of knee Confirmed Active Vitamin D deficiency Confirmed Active Diagnosis Diagnosis Type Effective Dates Health Status Clinical Service Informant Depression, major, recurrent, mild Discharge Diagnosis 10/17/24 Medicare annual wellness visit, subsequent Discharge Diagnosis 10/17/24 Vital Signs Most recent to oldest [Reference Range]: 1 Height 155 cm (10/17/24 8:06 AM) Weight 70.8 kg (10/17/24 8:06 AM) Oxygen Saturation [94-100 %] 94 % (10/17/24 8:06 AM) Pulse Rate [55-90 bpm] 91 bpm *H* (10/17/24 8:06 AM) Body Mass Index [18.5-24.99 kg/m2] 29.47 kg/m2 *H* (10/17/24 8:06 AM) Blood Pressure [90-138/55-84 mm Hg] 120/ 75mm Hg (10/17/24 8:06 AM) Blood pressure sites Arm, right (10/17/24 8:06 AM) Weight Obtained Via Standing scale (10/17/24 8:06 AM) Social History Social History Type Response Smoking Status Never smoker; Tobacc o user in household: Yes entered on: 06/01/14 Sex Sex Representation Female (finding) Patient Care team information Care Team Personnel Name: Herson KHAN, Yanet Webster Position: S PCO Associate Professional Member Role: PCP Address: [address] [place] [address] Telecom: Care Team Related Persons Name: MICHELE ANDRES Insurance Providers Guarantor name: CAROLYN ANDRES Health Plan Information #: 2 Payer: [facility] Member Number: [id number] Policy Number: NA Group Number: [id number] Health Plan Information #: 1 Payer: MEDICARE PART B OUTPT Member Number: [id number] Policy Number: NA Group Number: [id number]
--- OUTSIDE RECORDS SUMMARY | 2024-10-25 10:52 | XMS_ITS | Data Portability ---
Author Organization [place] [facility],, YASEMIN COYLE MD Address [address] [place] [address] Assessment No assessment recorded. Plan of Treatment [...] dose 07/05/2020 completed Yasemin Coyle MD [address], [place], [address], [facility] - [facility] in [facility], 07/05/2020 08:30:02 COVID-19, mRNA, LNP-S, PF, 100 mcg/0.5mL dose or 50 mcg/0.25mL dose 08/02/2020 completed Yasemin Coyle MD [address], [place], [address], [facility] - [facility] in [facility], 08/02/2020 09:06:29 Past Encounters Encounter ID Performer Location Encounter Start Date Encounter Closed Date Diagnosis/Indication Diagnosis SNOMED-CT Code Diagnosis ICD10 Code Diagnosis Note [id number] MD YASEMIN Tapia MD [address] [place] [address] 07/05/2020 08:09:06 07/05/2020 08:38:08 Administration of viral vaccine 01352866 Z23 [id number] MD YASEMIN Tapia MD [address] [place] [address] 08/02/2020 08:44:12 08/02/2020 09:13:50 Administration of viral vaccine 29609238 Z23 Health Concerns Section Related Observation LastModified by Organization Detai ls LastModified Time None Recorded Concern Status LastModified by Organization Details LastModified Time None Recorded Advance Directives Directive None Recorded Payers Encounter Date Sequence Insurance Name Policy Number Policy Colon Covered Member ID Colon Member ID Guarantor Name 07/05/2020 1 MEDICARE [place]: [employer] SERVICES Elisha Francoister [id number] Elisha Francoister 07/05/2020 2 [employer]IC[employer] - SENIOR SERVICES PLAN F (MEDICARE SUPPLEMENT) [id number] Elisha Francoister [id number] Elisha Francoister 08/02/2020 1 MEDICARE [place]: NATIONAL GOVERNMENT SERVICES Elisha Francoister [id number] Elisha Keyla 08/02/2020 2 [employer] - SENIOR SERVICES PLAN F (MEDICARE SUPPLEMENT) [id number] Elisha Francoister [id number] Elisha Ramires OBGyn Episode No OBEpisode recorded.
--- OUTSIDE RECORDS SUMMARY | 2024-10-25 10:52 | XMS_ITS | Patient Health Record ---
Author Organization [facility] Nany Mustafa Address [address] [place], [place] [address] Care Team Providers Care Hotel Housekeeper Name Role Phone Elisha Huber MD Primary Care Provider Unavailab Khadra Morris Unavailable [phone] Allergies Allergen (clinical drug ingredient) Drug/Non Drug [...] Problem Status W/U Status Risk Notes Problem 781920161957351 Hallux valgus (acquired), right foot (M20.11) Active confirmed Problem 999747010274986 Neuritis of righ t foot (G57.91) Active confirmed Problem 881638196726826 Osteoarthritis o f right ankle and foot (M19.071) Active confirmed Plan Of Treatment Pending Test Test Name Order Date X ray : Foot, right 3V 10/03/2020 Next Appt Details Provider Name:Khadra Fely gonzalez, 11/25/2024 09:30:00 AM, [address], [place], [address], Insurance Providers Payer Name Payer Address Payer Phone Subscriber Number Group Number Insured Name Patient Relationship to Insured Coverage Start Date Coverage End Date Medicare National Govt Sv[employer] Inc [address] [place] [address] [phone] [id number] KeylaElisha barajas Self - patient is the insured [employer] (Unicare) [address] [place] [address] [id number] Elisha Ramires Self - patient is the insured Medical (General) History Medical History History ICD Code Arthritis Chicken pox Gall bladder problems Macular degeneration thyroid Surgical History Surgery Date(Month/Year) gall bladder 07/2014 tonsils-complications trachectomy 1958
--- OUTSIDE RECORDS SUMMARY | 2024-10-25 10:52 | XMS_ITS | Patient Health Record ---
Author Organization [facility] Address [address] [place] [address] Support Name Relationship Address Phone CAROLYN ANDRES Guarantor Unknown [phone] Reason For Referral No Information Medications Medication SIG (Take, Route, Fr equency, Duration) Notes Start Date End Date Status Flonase 50MCG 2 Nasal daily for -3 [facility] 11/11/2011 Active predniSONE 10MG ORAL for -3 [facility] 11/11/2011 A ctive Problems Problem Type SNOMED Code ICD Code Onset Dates Problem Status W/U Status Risk Notes Problem Acute hepatitis C (126657676) Acute hepatitis C without mention of hepatic coma (070.51) Active confirmed Major Problem Disorder of function of stomach (283293397) Dyspepsia and other specified disorders of function of stomach (536.8) Active confirmed Diag Problem Backache (172888137) Unspecified backache (724.5) Active confirmed Major Problem Acne (83314074) Other acne (706.1) Active confirmed Other Problem Abdominal pain (43548579) Abdominal pain (789.0) Active confirmed Major Problem Right upper quadrant pain (595458155) Abdominal pain, right upper quadrant (789.01) Active confirmed Diag Problem Allergy (625494684) Allergy, unspecified not elsewhere classified (995.3) Active confirmed Diag Plan Of Treatment No Information Insurance Providers Payer Name Payer Address Payer Phone Subscriber Number Group Number Insured Name Patient Relationship to Insured Coverage Start Date Coverage End Date [facility] INDEMNITY PLAN [address] [place], [place] [id number] CAROLYN ANDRES Self - patient is the insured
== END 2024-10-21 10:00 | disposition home or self-care (01) ==
LOC: HO.HOSX 09:59
PROVIDERS: Visit Provider Physician Assistant
DX: M25.562 Pain in left knee (principal); M17.11 Unilateral primary osteoarthritis, right knee
CPT/HCPCS: 20610; 73562; 99202; J1010; J2003

== ENCOUNTER 2024-12-27 07:05 | Outpatient (AMB) | payer MEDICARE, OTHER, SELFPAY ==
--- OUTSIDE RECORDS SUMMARY | 2024-12-27 07:06 | XMS_ITS | Data Portability ---
Author Organization [place] [facility],, YASEMIN COYLE MD Address [address] [place] [address] Assessment No assessment recorded. Plan of Treatment [...] dose 07/05/2020 completed Yasemin Coyle MD [address], [place], [address], [place] [facility] in [facility], 07/05/2020 08:30:02 COVID-19, mRNA, LNP-S, PF, 100 mcg/0.5mL dose or 50 mcg/0.25mL dose 08/02/2020 completed Yasemin Coyle MD [address], [place], [address], [place] [facility], 08/02/2020 09:06:29 Past Encounters Encounter ID Performer Location Encounter Start Date Encounter Closed Date Diagnosis/Indication Diagnosis SNOMED-CT Code Diagnosis ICD10 Code Diagnosis Note [id number] MD YASEMIN Tapia MD [address] [place] [address] 07/05/2020 08:09:06 07/05/2020 08:38:08 Administration of viral vaccine 14415882 Z23 [id number] MD YASEMIN Tapia MD [address] [place] [address] 08/02/2020 08:44:12 08/02/2020 09:13:50 Administration of viral vaccine 77925969 Z23 Health Concerns Section Related Observation LastModified by Organization Detai ls LastModified Time None Recorded Concern Status LastModified by Organization Details LastModified Time None Recorded Advance Directives Directive None Recorded Payers Insurance Date Sequence Insurance Name Policy Number Policy Colon Covered Member ID Colon Member ID Guarantor Name 07/30/2020 1 [place] [employer] Elisha Ramires [id number] Elisha Ramires 07/30/2020 2 [facility] - SENIOR SERVICES PLAN F (MEDICARE SUPPLEMENT) [id number] Elisha Ramires [id number] Elisha Ramires OBGyn Episode No OBEpisode recorded.
--- OUTSIDE RECORDS SUMMARY | 2024-12-27 07:06 | XMS_ITS | Patient Health Record ---
Author Organization [facility] Address [address] [place] [address] Support Name Relationship Address Phone CAROLYN ANDRES Guarantor Unknown [phone] Reason For Referral No Information Medications Medication SIG (Take, Route, Fr equency, Duration) Notes Start Date End Date Status Flonase 50MCG 2 Nasal daily; Duration: -3 Piyush-MJ 11/11/19 12 Active predniSONE 10MG ORAL; Duration: -3 Pyiush-MJ 11/11/2011 Active Problems Problem Type SNOMED Code ICD Code Onset Dates Problem Status W/U Status Risk Notes Problem Acute hepatitis C (337763299) Acute hepatitis C without mention of hepatic coma (070.51) Active confirmed Major Problem Disorder of function of stomach (137621289) Dyspepsia and other specified disorders of function of stomach (536.8) Active confirmed Diag Problem Backache (766934016) Unspecified backache (724.5) Active confirmed Major Problem Acne (96140995) Other acne (706.1) Active confirmed Other Problem Abdominal pain (32432938) Abdominal pain (789.0) Active confirmed Major Problem Right upper quadrant pain (923483956) Abdominal pain, right upper quadrant (789.01) Active confirmed Diag Problem Allergy (689160593) Allergy, unspecified not elsewhere classified (995.3) Active confirmed Diag Plan Of Treatment No Information Insurance Providers Payer Name Payer Address Payer Phone Subscriber Number Group Number Insured Name Patient Relationship to Insured Coverage Start Date Coverage End Date [facility] INDEMNITY PLAN [address] [place], [place] [id number] CAROLYN ANDRES Self - patient is the insured
--- OUTSIDE RECORDS SUMMARY | 2024-12-27 07:06 | XMS_ITS | Patient Health Record ---
[facility] Address [address] [place] [address] Care Team Providers Care Grinder Hardboard Name Role Phone Elisha Huber MD Primary Care Provider Khadra Roger Unavailable [phone] Allergies Allergen (clinical drug ingredient) Drug/Non Drug Allergy documented on EMR Reaction Allergy Type Onset Date Status Biaxin Unknown Drug Allergy Active Novocain almost passed out Drug Allergy Active acetaminophen Tylenol Unknown Drug Allergy Act carmelo azithromycin Zithromax Z-Chago Unknown Drug Allergy Active shrimp allergenic extract Shrimp (Diagnostic) rash / nausea Drug Allergy Active Adhesive Unknown Allergy Active aspirin Aspirin Unknown Drug Allergy Active erythromycin Erythromycin Unknown Drug Allergy A ctive Penicillin Unknown Drug Allergy Active Shellfish (FN) Shellfish-derived Products rash / nausea Drug Allergy Active Reason For Referral No Information Medications Medication SIG (Take, Route, Fr equency, Duration) Notes Start Date End Date Status Ibuprofen PRN Active Physical Therapy . . . 2-3x/week; Durat ion: 3-4 weeks 11/25/2024 Active Immunizations Vaccine Route Administration Date Status Comme nts COVID-19 Moderna Vaccine Unknown 07/05/2020 Administered Second Dose: 08/02/2020 Social History Tobacco Use: Social History Observation Description Date Details (start date - stop date) Never Smoker NA - NA Tobacco use other than smoking: Question Answer Notes Are you an other tobacco user? No Tobacco Control (Standard) Question Answer Notes Tobacco use: Nonsmoker Additional Findings: Tobacco non-user Current no nsmoker AUDIT-C (Standard) Question Answer Notes Did you have a drink containing alcohol in the p ast year? No Points 0 Interpretation Negative Problems Problem Type SNOMED Code ICD Code Onset Dates Problem Status W/U Status Risk Notes Problem Neuritis of left foot (G57.92) Active confirmed Problem Osteoarthritis of midtarsal joint of left foot (7697335725434868 ) Osteoarthritis of midtarsal joint of left foot (M19.072) Active confirmed Vital Signs Blood pressure diastolic 80 mm Hg 11/25/2024 Height 5 ft in 11/25/2024 Blood pressure systolic 120 mm Hg 11/25/2024 Weight 160 lbs 11/25/2024 BMI 31.24 kg/m2 11/25/2024 Encounters Encounter Location Date Provider Diagnosis [facility] [address] [place] [address] 11/25/2024 Khadra Perica Pain in left ankle a nd joints of left foot M25.572 ; Neuritis of left foot G57.92 ; Bursitis of left foot M77.52 ; Osteoarthritis of midtarsal joint of left foot M19.072 ; Pain in left foot M79.672 and Posterior tibial tendinitis, left leg M76.822 Assessments Encounter Date Diagnosis (ICD Code) Assessment Notes Treatment Notes Treatment Clinical Notes Section Notes 11/25/2024 Pain in left ankle and joints of left foot (ICD-10 - M25.572) 11/25/2024 Neuritis of left foot (ICD-10 - G57.92) 11/25/2024 Bursitis of left foot (ICD-10 - M77.52) 11/25/2024 Osteoarthritis of midtarsal joint of left foot (ICD-10 - M19.072) 11/25/2024 Pain in left foot (ICD-10 - M79.672) 11/25/2024 Posterior tibial tendinitis, left leg (ICD-10 - M76.822) Plan Of Treatment Pending Test Test Name Order Date X ray : Foot, left 3V 11/25/2024 X ray : Foot, right 3V 10/03/2020 Insurance Providers Payer Name Payer Address Payer Phone Subscriber Number Group Number Insured Name Patient Relationship to Insured Coverage Start Date Coverage End Date Medicare National Govt Sv[employer] [address] [place] [phone] [id number] Elisha Ramires Self - patient is the insured 9 [employer]) [address] [place] [id number] [phone] [id number] Elisha Ramires Self - patient is the insured Medical (General) History Medical History History ICD Code Arthritis Chicken pox Gall bladder problems Macular degeneration thyroid Back,Hip,and Knee pain Warts Transfusions covid-19 Hepatitis C Surgical History Surgery Date(Month/Year) gall bladder 07/2014 tonsils-complications trachectomy 1958 Hospitalization History Reason Date(Month/Year) [facility] [place]- possible Bug Bite on leg, swelling, red hot 2022
--- NOTE | 2024-12-27 07:16 | AM.OFFWIN_ITS ---
Intake Vital Signs 12/27/24 07:17 Height 5 ft Weight 152 lb BMI 29.7 BP 122/60 Blood Pressure Location Lt brachial Position Sitting Pulse 86 Pulse Source Pulse Oximeter Temp 97.9 F Temp Source Oral Pulse Oximetry (%) 97 Oxygen Delivery Method Room Air Intake Visit Reasons: EP Ear blocked/numb down neck, nausea, dizzy Intake Note: presents with right ear blockage, numbness on right side of neck nauseous and dizzy for about 4 days Patient Tobacco Use Status: Never used Tobacco Allergies No Known Allergies Allergy (Verified 12/27/24 07:19) Do you need a note to return to daycare/school/sports/work: No HPI HPI Comments History of Present Illness Details She presents to office with R ear blockage Ongoing x 1 year States slight blockage to L side as well Has tried flushing past and OTC drops without relief She said she used Debrox 4 days in a row bilaterally and tried to flush without relief Yesterday after using drops she feels like the R side of her neck/outer ear is numb No facial doorp, confusion or difficulty speaking She said it only felt that way after she tried to flush it + pain to R side of ear. 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 Review of Systems Const Denies chills, Denies fatigue, Denies fever(s), Denies headache(s) and Denies weakness Eyes Denies change in vision ENT Reports dizziness, Denies ear discharge, Reports otalgia, Denies facial pain, Denies headache(s), Denies nasal discharge and Denies throat swelling Card Denies chest pain and Denies syncope Resp Denies cough GI Reports nausea and Denies vomiting Musc Reports numbness (felt like to R side of neck post ear lavage at home) Skin/Breast Denies rash Neuro Denies confusion, Reports dizziness, Denies syncope, Denies headache(s), Denies lack of coordination, Reports numbness (felt like to R side of neck post ear lavage at home), Denies paresthesias and Denies weakness Psych Denies confusion Endo Denies fatigue Aller/Immun Denies throat swelling Physical Exam Vital Signs: Last Vital Signs Temp 97.9 F 12/27/24 07:17 Pulse 86 12/27/24 07:17 BP 122/60 12/27/24 07:17 Pulse Ox 97 12/27/24 07:17 Oxygen Delivery Method Room Air 12/27/24 07:17 BMI result Body Mass Index 29.7 General: Non-toxic, NAD. Speaking full sentences. Skin: Warm dry throughout. No neck, face of scalp edema, erythema, rashes, ecchymosis Eye: EOMI, PERRLA HENT: Airway patent. Uvula midline. No pharyngeal erythema or edema. No FOUR ROLL CALENDER OPERATOR. Bilateral canals + cerumen. Unable to visualize TM. No mastoid erythema or ttp bilaterally. Slight discomfort to palpation of R auricle. Respiratory: CTA bilaterally. No wheezes, rales or rhonchi Cardiac: RRR. No murmur MSK: Full ROM extremities. Neurology: Alert. No aphasia or facial droop. Gait without abnormality Psych: Good mood and affect Const General: No confusion Orientation/consciousness: No confusion Neuro General: No confusion Office Procedures Cerumen Removal Details: verbal consent obtained. Curette used to remove cerumen from L canal without complication. R canal has cerumen removed with currette and then warm saline used for irrigation. Pt tolerated well without complication. Bilateral canals clear without edema, erythema. No TM erythema, bulging or perforation. From which ear canal was the cerumen removed: bilateral Removal: irrigation and otoscope w/curette Notes: patient tolerated procedure well, no complications and ear canal clear [id number] Wax Removal by Spoon/Curette Assessment & Plan Assessment & Plan (1) Impacted cerumen of both ears: Code(s): H61.23 - Impacted cerumen, bilateral Plan: Patient seen and evaluated. See procedure note Discussed once or twice a year irrigation F/U with PCP Call us with questions Patient gave verbal understanding and had no additional questions or concerns at time of discharge All questions answered Coding Level of Care Code Est Pt Level 3 (29152) Diagnoses Impacted cerumen of both ears H61.23 CPT Codes Office Procedure - CPT: 63808-Tuz Wax Removal by Spoon/Curette ([id number])
[2024-12-27 07:17] VITALS: BP 122/60; PULSE 86; TEMP 36.6; O2SAT 97; BMI 29.7
== END 2024-12-27 08:49 | disposition home or self-care (01) ==
PROVIDERS: Visit Provider Physician Assistant
DX: H92.01 Otalgia, right ear (principal); H61.23 Impacted cerumen, bilateral

== ENCOUNTER → 2024-12-27 07:05 | Outpatient (BNVA) | payer MEDICARE, OTHER, SELFPAY | PROVIDERS: PCP Family Medicine; Visit Provider Physician Assistant | DX: H61.23 Impacted cerumen, bilateral (principal) | CPT/HCPCS: 69210; 99212 ==

== ENCOUNTER 2025-01-23 07:07 | Outpatient (AMB) | payer MEDICARE, OTHER, SELFPAY ==
--- OUTSIDE RECORDS SUMMARY | 2025-01-23 07:08 | XMS_ITS | Patient Health Record ---
[facility] Address [address] [address] Care Team Providers Care Physical Design Engineer Name Role Phone Elisha Huber MD Primary Care Provider Khadra Roger Unavailable [phone] Allergies Allergen (clinical drug ingredient) Drug/Non Drug [...] Osteoarthritis of midtarsal joint of left foot (1503884938802332 ) Osteoarthritis of midtarsal joint of left foot (M19.072) Active confirmed Vital Signs Blood pressure diastolic 80 mm Hg 11/25/2024 Height 5 ft in 11/25/2024 Blood pressure systolic 120 mm Hg 11/25/2024 Weight 160 lbs 11/25/2024 BMI 31.24 kg/m2 11/25/2024 Encounters Encounter Location Date Provider Diagnosis [facility] [address] [place] [address] 11/25/2024 Khadra Perica Pain in left ankle [...] Medicare National Govt Svcs Inc [address] [facility] [place] [phone] [id number] Elisha Ramires Self - patient is the insured 9 [employer]) [address] [place] [id number] Elisha Ramires Self - patient is the insured Medical (General) History Medical History History ICD Code Arthritis Chicken pox Gall bladder problems Macular degeneration thyroid Back,Hip,and Knee pain Warts Transfusions covid-19 Hepatitis C Surgical History Surgery Date(Month/Year) gall bladder 07/2014 tonsils-complications trachectomy 1958 Hospitalization History Reason Date(Month/Year) [facility] [place]- possible Bug Bite on leg, swelling, red hot 2022
--- OUTSIDE RECORDS SUMMARY | 2025-01-23 07:08 | XMS_ITS | Patient Health Record ---
Author Organization [facility] Address [address] [place] [address] Support Name Relationship Address Phone CAROLYN ANDRES Guarantor Unknown [phone] Reason For Referral No Information Medications Medication SIG (Take, Route, Fr equency, Duration) Notes Start Date End Date Status Flonase 50MCG 2 Nasal daily; Duration: -3 Piyush-MJ 11/11/19 12 Active predniSONE 10MG ORAL; Duration: -3 Piyush-MJ 11/11/2011 Active Problems Problem Type SNOMED Code ICD Code Onset Dates Problem Status W/U Status Risk Notes Problem Acute hepatitis C (427518298) Acute hepatitis C without mention of hepatic coma (070.51) Active confirmed Major Problem Disorder of function of stomach (161225940) Dyspepsia and other specified disorders of function of stomach (536.8) Active confirmed Diag Problem Backache (096696983) Unspecified backache (724.5) Active confirmed Major Problem Acne (26090532) Other acne (706.1) Active confirmed Other Problem Abdominal pain (31583773) Abdominal pain (789.0) Active confirmed Major Problem Right upper quadrant pain (265391160) Abdominal pain, right upper quadrant (789.01) Active confirmed Diag Problem Allergy (491320702) Allergy, unspecified not elsewhere classified (995.3) Active confirmed Diag Plan Of Treatment No Information Insurance Providers Payer Name Payer Address Payer Phone Subscriber Number Group Number Insured Name Patient Relationship to Insured Coverage Start Date Coverage End Date [facility] INDEMNITY PLAN [address] [place], [place] [id number] CAROLYN ANDRES Self - patient is the insured
[2025-01-23 07:31] VITALS: BP 138/76; PULSE 76; TEMP 36.6; O2SAT 97; BMI 27.8
--- NOTE | 2025-01-23 07:31 | MHC.OFFWIV ---
Intake Vital Signs 01/23/25 07:31 Height 5 ft 2 in Weight 152 lb 4 oz BMI 27.8 BP 138/76 Blood Pressure Location Lt brachial Position Sitting Pulse 76 Pulse Source Pulse Oximeter Temp 97.9 F Temp Source Oral Pulse Oximetry (%) 97 Oxygen Delivery Method Room Air Intake Visit Reasons: EP Bug bite, cellulitis?? Intake Note: presents with red, slightly swollen, minimal itching to left thigh from bug bites a couple days. states h/o cellulitis Patient Tobacco Use Status: Never used Tobacco Allergies No Known Allergies Allergy (Verified 01/23/25 07:33) Do you need a note to return to daycare/school/sports/work: No HPI HPI Comments History of Present Illness Details History of Present Illness - The patient is a 69-year-old female presenting with an insect bite with suspected cellulitis. - The insect bite occurred during a vacation and was scratched, leading to redness and warmth at the site. - The patient has a history of cellulitis, which previously required hospitalization for three days. - The current bite is on the left side of the body, with no fever, purulence, or bleeding reported. - She denies discharge, fever, chills, bleeding, joint pain, CP, SOB, abd pain, n/v/d. Physical Exam General: Cooperative, healthy appearing, comfortable, no acute distress and well developed Respiratory: Normal respiratory effort and able to speak in complete sentences. Clear to auscultation bilaterally. No w/r/r noted. Cardiovascular: Regular rate and rhythm. Normal S1 and S2. No m/r/g noted. Skin: Redness noted on the left upper inner thigh, warm to touch, dry, fla, and non-tender. No rashes or lesions noted. No streaking, no induration noted. Patient was informed and verbally consented to the use of an ambient scribe for clinic note documentation during this visit. 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 - Advise the patient to monitor for signs of fever or spreading of the redness. - Instruct the patient to follow up if symptoms worsen or do not improve. Medications: New cephalexin 500 mg PO Q6H 28 caps 0RF Coding Level of Care Code Est Pt Level 3 (62811) Diagnoses Left leg cellulitis L03.116
== END 2025-01-23 07:53 | disposition home or self-care (01) ==
PROVIDERS: Visit Provider Physician Assistant Medical
DX: L03.116 Cellulitis of left lower limb (principal)

== ENCOUNTER → 2025-01-23 07:07 | Outpatient (BNVA) | payer MEDICARE, OTHER, SELFPAY | PROVIDERS: Visit Provider Physician Assistant Medical | DX: L03.116 Cellulitis of left lower limb (principal) | CPT/HCPCS: 99212 ==

== ENCOUNTER 2025-02-24 09:02 | Outpatient (AMB) | payer MEDICARE, OTHER, SELFPAY ==
--- NOTE | 2025-02-24 09:18 | A.OFFVIS_ITS ---
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 Patient was referred by JEANCARLOS 10/06/24, at their visit they discussed her left foot pain that is located over the midfoot in the region of the second tarsometatarsal. At today's visit she states that she was seen at [facility] walk in for a fall a few months ago at home down her stairs. Patient reports that she was instructed by [facility] to change her shoes to something that would give support, X Ray of the ankle and foot were done. She added that the burning sensation is very sporadic. Allergies No Known Allergies Allergy (Verified 02/24/25 09:26) HPI Comments Details: Dorsal left foot romero, can't tell which movement causes it. When she presses on top, she feels the pain. Left foot is always cold. Swells often, especially end of the day. Sensitive to touch but can wear shoes. No foot drop but tends to drag and trip over it. She's not sure if left foot is numb. Left sided back and hip pain. It can radiate down to left foot and left leg. But she thinks the shooting pain is fairly new. She was seen in occupational medicine 11/21/2023 for left ankle sprain after a fall. Left knee issue, followed by Jessica and JEANCARLOS, but not sure if related to it. No numbness on left knee. Recent left leg cellulitis from a bug bite, seen in walk-in clinic 01/23/2025. She thinks this is a separate issue. No diabetes. Not taking any medications. 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 Patient was appropriately conversant and oriented. Good historian. MSK: No specific abnormalities found on inspection of the spine and all extremities. No pain with palpation over the lumbar area. Lumbar ROM was full. No tenderness over lower back or SI joint. Mild tenderness over left GT. No allodynia, hypersensitivity, redness, swelling, skin changes on left foot. No tenderness to touch. Some pain when trying to do left dorsiflexion but no actual footdrop. No atrophy. Neurological: Neurologic examination of the upper and lower extremities was nonfocal with intact sensation, muscle stretch reflexes and without focal motor deficits . Conley?s negative bilaterally. Babinski was down going bilaterally. Clonus was negative. Gait is antalgic without loss of balance. Results Reviewed Results Reviewed: IMPRESSION (MRI) 11/17/23 left knee: 1. complex tear, primarily horizontal involving the posterior two thirds the lateral meniscus. 2. Mild chondral thinning in the lateral tibiofemoral compartment. Ordering Physician: Asiya Alvarez Date of Service: 11/21/23 Procedure(s): XR foot LT min 3V Accession Number(s): [id number] cc: Elisha Huber MD; Asiya Alvarez~ EXAMINATION: XR FOOT, LEFT XR ANKLE, LEFT CLINICAL INFORMATION: Pain COMPARISON: None available. TECHNIQUE: 3 views left foot 3 views left ankle FINDINGS: No acute visible fracture or dislocation. Ankle mortise is symmetric. Plantar calcaneal heel spur. Spurring the dorsal midfoot. Multi joint arthritic changes. Joint space alignment are otherwise maintained. Soft tissue prominence along the lateral malleolus. XR/XR foot LT min 3V IMPRESSION: 1. No acute visible fracture or dislocation. 2. Soft tissue prominence along the lateral malleolus. I reviewed records from the following: As above Assessment & Plan Assessment & Plan (1) Paresthesia of left foot: Code(s): R20.2 - Paresthesia of skin Category: Medical Plan My 1st suspicion is residual sensation or CRPS from the left ankle strain she had last year. Other differentials include peroneal neuropathy or lumbar radiculopathy. Very low suspicion that this is lumbar related. Patient does not have any footdrop despite the pain. We sent for left ankle and foot x-rays. At the time of writing this note, report has already been reviewed. No fracture seen. Small calcaneal spur. We will schedule for EMG to rule out peroneal neuropathy. Assessment and plan discussed with patient, and patient was agreeable. All questions were answered thoroughly. Bárbara Grewal MD, MIKAYLA Board Certified, [place] Board [employer] and Rehabilitation (ABPMR) Board Certified, [place] Board of Electrodiagnostic Medicine (ABEM) Orders: Orders XR foot LT 2V Today T25.022A - Burn of unspecified degree of left foot, initial encounter NE nerve conduction velocity Today T25.022A - Burn of unspecified degree of left foot, initial encounter NE electromyogram (EMG) Today T25.022A - Burn of unspecified degree of left foot, initial encounter XR ankle LT 2V Today T25.022A - Burn of unspecified degree of left foot, initial encounter Coding Level of Care Code New Pt Level 4 (79130) Diagnoses Paresthesia of left foot R20.2
--- OUTSIDE RECORDS SUMMARY | 2025-02-24 09:53 | XMS_ITS | Patient Health Record ---
Author Organization [facility] Address [address] [place] [address] Support Name Relationship Address Phone CAROLYN ANDRES Guarantor Unknown [phone] Reason For Referral No Information Medications Medication SIG (Take, Route, Fr equency, Duration) Notes Start Date End Date Status Flonase 50MCG 2 Nasal daily; Duration: -3 Piyush-MJ 11/11/19 12 Active predniSONE 10MG ORAL; Duration: -3 Piyush-MJ 11/11/2011 Active Problems Problem Type SNOMED Code ICD Code Onset Dates Problem Status W/U Status Risk Notes Problem Acute hepatitis C (760147786) Acute hepatitis C without mention of hepatic coma (070.51) Active confirmed Major Problem Disorder of function of stomach (899928326) Dyspepsia and other specified disorders of function of stomach (536.8) Active confirmed Diag Problem Backache (733763062) Unspecified backache (724.5) Active confirmed Major Problem Acne (05336266) Other acne (706.1) Active confirmed Other Problem Abdominal pain (80381362) Abdominal pain (789.0) Active confirmed Major Problem Right upper quadrant pain (737770700) Abdominal pain, right upper quadrant (789.01) Active confirmed Diag Problem Allergy (830942839) Allergy, unspecified not elsewhere classified (995.3) Active confirmed Diag Plan Of Treatment No Information Insurance Providers Payer Name Payer Address Payer Phone Subscriber Number Group Number Insured Name Patient Relationship to Insured Coverage Start Date Coverage End Date [facility] INDEMNITY PLAN [address] [place], [place] [id number] CAROLYN ANDRES Self - patient is the insured
--- OUTSIDE RECORDS SUMMARY | 2025-02-24 09:53 | XMS_ITS | Patient Health Record ---
[facility] Address [address] [place] [address] Care Team Providers Care Manager Rfid Name Role Phone Elisha Huber MD Primary Care Provider Khadra Roger Unavailable [phone] Allergies Allergen (clinical drug ingredient) Drug/Non Drug [...] Problem Status W/U Status Risk Notes Problem Mononeuropathy of lower limb (942608713) Neuritis of left foot (G57.92) Active confirmed Problem Osteoarthritis of midtarsal joint of left foot (8828175979739755 ) Osteoarthritis of midtarsal joint of left foot (M19.072) Active confirmed Vital Signs Blood pressure diastolic 80 mm Hg 11/25/2024 Height 5 ft in 11/25/2024 Blood pressure systolic 120 mm Hg 11/25/2024 Weight 160 lbs 11/25/2024 BMI 31.24 kg/m2 11/25/2024 Encounters Encounter Location Date Provider Diagnosis [facility] [address] [address] 11/25/2024 Khadra Tran Pain in left ankle a nd joints [...] Medicare National Govt Svcs Inc [address] [place] [address] [id number] Elisha Ramires Self - patient is the insured [employer]) [address] [place] [address] [phone] [id number] Elisha Ramires Self - patient is the insured Medical (General) History Medical History History ICD Code Arthritis Chicken pox Gall bladder problems Macular degeneration thyroid Back,Hip,and Knee pain Warts Transfusions covid-19 Hepatitis C Surgical History Surgery Date(Month/Year) gall bladder 07/2014 tonsils-complications trachectomy 1958 Hospitalization History Reason Date(Month/Year) [facility] [place]- possible Bug Bite on leg, swelling, red hot 2022
== END 2025-02-24 11:29 | disposition home or self-care (01) ==
LOC: HO.HOS 09:03
PROVIDERS: Visit Provider Physical Medicine & Rehabilitation
DX: R20.2 Paresthesia of skin (principal)
CPT/HCPCS: 99203

== ENCOUNTER 2025-02-24 09:02 | Outpatient (REF) | payer MEDICARE, OTHER, SELFPAY ==
--- NOTE | ~2025-02-24 | XR_ITS ---
EXAMINATION: XR ANKLE 1-2 VIEWS LEFT, XR FOOT 1-2 VIEWS LEFT HISTORY: T25.022A - Burn of unspecified degree of left foot, initial encounter COMPARISON: Comparison is made with the prior examination dated 11/21/2023. FINDINGS: Six views of the left foot and ankle are submitted. Osseous mineralization is normal. There is no fracture or dislocation. The joint spaces are preserved. There is a small plantar calcaneal spur. The soft tissues are unremarkable. XR/XR ankle LT 2V IMPRESSION: Small plantar calcaneal spur. Otherwise unremarkable examination of the left foot and ankle. Electronically signed by: Ankush Pandey MD 02/24/2025 10:12 AM EDT
--- NOTE | ~2025-02-24 | XR_ITS ---
EXAMINATION: XR ANKLE 1-2 VIEWS LEFT, XR FOOT 1-2 VIEWS LEFT HISTORY: T25.022A - Burn of unspecified degree of left foot, initial encounter COMPARISON: Comparison is made with the prior examination dated 11/21/2023. FINDINGS: Six views of the left foot and ankle are submitted. Osseous mineralization is normal. There is no fracture or dislocation. The joint spaces are preserved. There is a small plantar calcaneal spur. The soft tissues are unremarkable. XR/XR foot LT 2V IMPRESSION: Small plantar calcaneal spur. Otherwise unremarkable examination of the left foot and ankle. Electronically signed by: Ankush Pandey MD 02/24/2025 10:12 AM EDT
== END 2025-02-24 09:03 | disposition home or self-care (01) ==
LOC: HO.HOSX 09:02
PROVIDERS: Visit Provider Physical Medicine & Rehabilitation
DX: T25.022A Burn of unspecified degree of left foot, initial encounter (principal); R20.2 Paresthesia of skin; X58.XXXA Exposure to other specified factors, initial encounter
CPT/HCPCS: 73600; 73620; 99202

== ENCOUNTER → 2025-02-24 09:55 | Outpatient (BNV) | payer MEDICARE, OTHER, SELFPAY | PROVIDERS: Visit Provider Radiology Diagnostic Radiology | DX: M25.572 Pain in left ankle and joints of left foot (principal); M77.32 Calcaneal spur, left foot | CPT/HCPCS: 73600; 73620 ==

== ENCOUNTER 2025-02-27 09:27 | Outpatient (AMB) | payer MEDICARE, OTHER, SELFPAY ==
[2025-02-27 10:20] VITALS: BP 120/80; PULSE 83; RESP 16; TEMP 36.8; O2SAT 98; BMI 28.7
--- NOTE | 2025-02-27 10:20 | AM.OFFWIN_ITS ---
Intake Vital Signs 02/27/25 10:20 Height 5 ft 2 in Weight 157 lb BMI 28.7 BP 120/80 Blood Pressure Location Lt brachial Position Sitting Respiration 16 Pulse 83 Pulse Source Pulse Oximeter Temp 98.3 F Temp Source Oral Pulse Oximetry (%) 98 Oxygen Delivery Method Room Air Intake Visit Reasons: ep cellulitis?? Patient Tobacco Use Status: Never used Tobacco Accompanied by: Self / Same As Patient Allergies No Known Allergies Allergy (Verified 02/27/25 10:23) HPI HPI Comments History of Present Illness Details History of Present Illness - The patient is a 69-year-old female pr esenting with cellulitis after a bee sting. - The current episode began after a susp ected bee sting while gardening, leading to swelling, erythema, and a white robert around the affected area. - The patient experiences itching and si gnificant swelling at the site. - The condition has not resolved spontan eously, prompting medical evaluation. - No medications were taken prior to the visit for the current episode. - The patient has a history of multiple cellulitis episodes, typically following insect bites. - She denies fever, chills, joint pain, CP, SOB, wheezing, sore throat, or lip swelling. Physical Exam General: Cooperative, healthy appearing, comfortable, no acute distress and well developed Orientation: Patient oriented x3 Respiratory: Normal respiratory effort and able to speak in complete sentences. Clear to auscultation bilaterally Cardiovascular: Regular rate and rhythm. Normal S1 and S2 Skin: Circular area of erythema noted on the right lateral buttock/upper leg, slightly raised and warm. 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 No streaking noted. Patient was informed and verbally consented to the use of an ambient scribe for clinic note documentation during this visit. 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 Review of Systems Const All systems reviewed & are unremarkable except as noted in HPI and below Physical Exam Vital Signs: Last Vital Signs Temp 98.3 F 02/27/25 10:20 Pulse 83 02/27/25 10:20 Resp 16 02/27/25 10:20 BP 120/80 02/27/25 10:20 Pulse Ox 98 02/27/25 10:20 Oxygen Delivery Method Room Air 02/27/25 10:20 BMI result Body Mass Index 28.7 Assessment & Plan Assessment & Plan (1) Cellulitis: Code(s): L03.90 - Cellulitis, unspecified Qualifiers: Site of cellulitis: buttock Qualified Code(s): L03.317 - Cellulitis of buttock (2) Bee sting: Code(s): T63.441A - Toxic effect of venom of bees, accidental (unintentional), initial encounter Qualifiers: Encounter type: initial encounter Injury intent: accidental or unintentional Qualified Code(s): T63.441A - Toxic effect of venom of bees, accidental (unintentional), initial encounter Plan Most likely a cellulitis after a bee sting plan - Initiate a 7-day course of antibiotics to address the infection. - Recommend the use of Benadryl or hydrocortisone cream to alleviate itching. - Advise the application of ice packs to reduce swelling and discomfort. - tylenol or motrin as needed for pain or fever - follow up with PCP - advised if the area gets bigger or spreads to come back for another evaluation Medications: New cephalexin 500 mg PO Q6H 28 caps 0RF Coding Level of Care Code Est Pt Level 3 (75369) Diagnoses Cellulitis of buttock L03.317 Site of cellulitis: buttock Bee sting, accidental or unintentional, initial encounter T63.441A Encounter type: initial encounter Injury intent: accidental or unintentional
--- OUTSIDE RECORDS SUMMARY | 2025-02-27 11:18 | XMS_ITS | Patient Health Record ---
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 confirmed Vital Signs Blood pressure diastolic 80 mm Hg 11/25/2024 Height 5 ft in 11/25/2024 Blood pressure systolic 120 mm Hg 11/25/2024 Weight 160 lbs 11/25/2024 BMI 31.24 kg/m2 11/25/2024 Encounters Encounter Location Date Provider Diagnosis [facility] [address] [address] 11/25/2024 Khadra Tran Pain in left ankle [...] Medicare National Govt Svcs Inc [address] [place] [address] [id number] Elisha Ramires Self - patient is the insured 9 [employer]) [address] [place] [address] [phone] [id number] Elisha Ramires Self - patient is the insured Medical (General) History Medical History History ICD Code Arthritis Chicken pox Gall bladder problems Macular degeneration thyroid Back,Hip,and Knee pain Warts Transfusions covid-19 Hepatitis C Surgical History Surgery Date(Month/Year) gall bladder 07/2014 tonsils-complications trachectomy 1958 Hospitalization History Reason Date(Month/Year) [facility] [place]- possible Bug Bite on leg, swelling, red hot 2022
--- OUTSIDE RECORDS SUMMARY | 2025-02-27 11:19 | XMS_ITS | Patient Health Record ---
Author Organization [facility] Address [address] [place] [address] Support Name Relationship Address Phone CAROLYN ANDRES Guarantor Unknown [phone] Reason For Referral No Information Medications Medication SIG (Take, Route, Fr equency, Duration) Notes Start Date End Date Status Flonase 50MCG 2 Nasal daily; Duration: -3 Piyush-MJ 11/11/19 12 Active predniSONE 10MG ORAL; Duration: -3 Piyush-MJ 11/11/2011 Active Problems Problem Type SNOMED Code ICD Code Onset Dates Problem Status W/U Status Risk Notes Problem Acute hepatitis C (863968139) Acute hepatitis C without mention of hepatic coma (070.51) Active confirmed Major Problem Disorder of function of stomach (080022784) Dyspepsia and other specified disorders of function of stomach (536.8) Active confirmed Diag Problem Backache (082747494) Unspecified backache (724.5) Active confirmed Major Problem Acne (99973711) Other acne (706.1) Active confirmed Other Problem Abdominal pain (21944842) Abdominal pain (789.0) Active confirmed Major Problem Right upper quadrant pain (863403882) Abdominal pain, right upper quadrant (789.01) Active confirmed Diag Problem Allergy (693459525) Allergy, unspecified not elsewhere classified (995.3) Active confirmed Diag Plan Of Treatment No Information Insurance Providers Payer Name Payer Address Payer Phone Subscriber Number Group Number Insured Name Patient Relationship to Insured Coverage Start Date Coverage End Date [facility] INDEMNITY PLAN [address] [place], [place] [id number] CAROLYN ANDRES Self - patient is the insured
== END 2025-02-27 10:55 | disposition home or self-care (01) ==
PROVIDERS: Visit Provider Physician Assistant Medical
DX: L03.317 Cellulitis of buttock (principal); T63.441A Toxic effect of venom of bees, accidental (unintentional), initial encounter

== ENCOUNTER → 2025-02-27 09:27 | Outpatient (BNVA) | payer MEDICARE, OTHER, SELFPAY | PROVIDERS: Visit Provider Physician Assistant Medical | DX: L03.317 Cellulitis of buttock (principal) | CPT/HCPCS: 99212 ==

== ENCOUNTER 2025-05-05 10:14 | Outpatient (AMB) | payer MEDICARE, OTHER, SELFPAY ==
--- NOTE | 2025-05-05 10:18 | MHC.OFFVIS ---
Intake Visit Reasons: OV - LT knee pain, interested in injection Intake Note: Elisha is a 69 year old female who presents today for a follow up of her left knee osteoarthritis, last injection 10/21/24. Patient reports last injection gave her relief and would like to repeat. Allergies No Known Allergies Allergy (Verified 05/05/25 10:23) HPI HPI OV - LT knee pain, interested in injection: Details: Ms. Ramires is a 69-year-old female who presents to the office today for evaluation of left knee pain due to osteoarthritis. Her last cortisone injection was 10/21/24 for the right knee which gave her relief and therefore, the patient is looking to receive a cortisone injection in the left knee today. 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 No ecchymosis, erythema or joint effusion. Full range of motion. NVI. Office Procedures AMB Joint Injection/Aspiration Joint Injection/Aspiration Primary Site: Left Knee Prep: site was prepped using aseptic technique, ethochloride spray was applied and injection warnings given Injected: 40 mg of, Decadron, with 3 mL of, 1% plain Lidocaine, 0.25% Bupivacaine and in the joint Approach Used: anterolateral Procedure: The patient tolerated the procedure well, but had some pain with the injection and there was some relief with the local anesthesia Coding 47925 - Large joint Procedure code (CPT) selection complete Assessment & Plan Assessment & Plan (1) Osteoarthritis of left knee: Code(s): M17.12 - Unilateral primary osteoarthritis, left knee Category: Medical Plan The patient was offered a cortisone injection in left knee. The patient was explained the risks, benefits, and alternatives to receiving this injection. After receiving consent for the injection, the patient had the procedure done while in the office today. The patient tolerated the procedure well with no complications. The risks, benefits, and alternatives to a corticosteroid injection were discussed with the patient, including the potential benefits of decreased inflammation and pain, improved function, and diagnostic value. Risks were reviewed, including post-injection flare, skin or fat atrophy, transient facial flushing, temporary elevation in blood glucose, bruising, and rare but serious complications such as infection, tendon weakening or rupture, and cartilage damage with repeated injections. Procedure-related discomfort and possible vasovagal symptoms were also explained. Alternatives were reviewed, including NSAIDs, physical therapy, activity modification, bracing, ice/heat, weight management, hyaluronic acid injections when appropriate, PRP or other orthobiologics, oral steroids, surgery depending on pathology, and observation. The patient verbalized understanding and elected to proceed. After receiving consent for the injection, the patient had the procedure done while in the office today. The patient tolerated the procedure well with no complications. Due to the patient?s history of diabetes, they were instructed to monitor their blood glucose level. The patient was informed that they could see a rise in their numbers and if the numbers became too high, they were instructed to call their PCP. Follow-up will be PRN, or sooner if needed X-rays obtained on 10/21/2024 of bilateral knees in the standing AP view revealed left knee osteoarthritis. Coding Level of Care Code Est Pt Level 3 (55551) Diagnoses Osteoarthritis of left knee M17.12 CPT Codes Coding - 00602 Large joint: 22769 - Large joint ([id number])
--- OUTSIDE RECORDS SUMMARY | 2025-05-05 10:52 | XMS_ITS | Patient Health Record ---
[facility] Address [address] [address] Care Team Providers Care Manager Procurement Name Role Phone Elisha Huber MD Primary Care Provider Khadra Roger Unavailable [phone] Allergies Allergen (clinical drug ingredient) Drug/Non Drug [...] Risk Notes Problem Mononeuropathy of lower limb (440333327) Neuritis of left foot (G57.92) Active confirmed Problem Osteoarthritis of midtarsal joint of left foot (4642120629194471 ) Osteoarthritis of midtarsal joint of left foot (M19.072) Active confirmed Vital Signs Blood pressure diastolic 80 mm Hg 11/25/2024 Height 5 ft in 11/25/2024 Blood pressure systolic 120 mm Hg 11/25/2024 Weight 160 lbs 11/25/2024 BMI 31.24 kg/m2 11/25/2024 Encounters Encounter Location Date Provider Diagnosis [facility] [address] [address] 11/25/2024 Khadra Tran Pain in left ankle [...] Medicare National Govt Svcs Inc [address] [place] [address] [id number] Elisha Ramires Self - patient is the insured [employer]) [address] [place] [address] [id number] Elisha Ramires Self - patient is the insured Medical (General) History Medical History History ICD Code Arthritis Chicken pox Gall bladder problems Macular degeneration thyroid Back,Hip,and Knee pain Warts Transfusions covid-19 Hepatitis C Surgical History Surgery Date(Month/Year) gall bladder 07/2014 tonsils-complications trachectomy 1958 Hospitalization History Reason Date(Month/Year) [facility] [place]- possible Bug Bite on leg, swelling, red hot 2022
--- OUTSIDE RECORDS SUMMARY | 2025-05-05 10:52 | XMS_ITS | Patient Health Record ---
Author Organization [facility] Address [address] [place] [address] Support Name Relationship Address Phone CAROLYN ANDRES Guarantor Unknown [phone] Reason For Referral No Information Medications Medication SIG (Take, Route, Fr equency, Duration) Notes Start Date End Date Status Flonase 50MCG 2 Nasal daily; Duration: -3 Piyush-MJ 11/11/19 12 Active predniSONE 10MG ORAL; Duration: -3 Piyush-MJ 11/11/2011 Active Problems Problem Type SNOMED Code ICD Code Onset Dates Problem Status W/U Status Risk Notes Problem Acute hepatitis C (397519741) Acute hepatitis C without mention of hepatic coma (070.51) Active confirmed Major Problem Disorder of function of stomach (103136234) Dyspepsia and other specified disorders of function of stomach (536.8) Active confirmed Diag Problem Backache (383952190) Unspecified backache (724.5) Active confirmed Major Problem Acne (62618161) Other acne (706.1) Active confirmed Other Problem Abdominal pain (87442453) Abdominal pain (789.0) Active confirmed Major Problem Right upper quadrant pain (178120412) Abdominal pain, right upper quadrant (789.01) Active confirmed Diag Problem Allergy (039381769) Allergy, unspecified not elsewhere classified (995.3) Active confirmed Diag Plan Of Treatment No Information Insurance Providers Payer Name Payer Address Payer Phone Subscriber Number Group Number Insured Name Patient Relationship to Insured Coverage Start Date Coverage End Date [facility] INDEMNITY PLAN [address] [place], [place] [id number] CAROLYN ANDRES Self - patient is the insured
--- OUTSIDE RECORDS SUMMARY | 2025-05-05 10:52 | XMS_ITS | Data Portability ---
Author Organization [facility],, YASEMIN COYLE MD Address [address] [place] [address] Assessment No assessment recorded. Plan of Treatment [...] dose 07/05/2020 completed Yasemin Coyle MD [address], [place], [address], [facility], 07/05/2020 08:30:02 COVID-19, mRNA, LNP-S, PF, 100 mcg/0.5mL dose or 50 mcg/0.25mL dose 08/02/2020 completed Yasemin Coyle MD [address], [place], [address], [place] [facility], 08/02/2020 09:06:29 Past Encounters Encounter ID Performer Location Encounter Start Date Encounter Closed Date Diagnosis/Indication Diagnosis SNOMED-CT Code Diagnosis ICD10 Code Diagnosis IMO Codes Diagnosis Note [id number] MD YASEMIN Tapia MD [address] [place] [address] 07/05/2020 08:09:06 07/05/2020 08:38:08 Administration of viral vaccine [id number] Z23 [id number] MD YASEMIN Tapia MD [address] [place] [address] 08/02/2020 08:44:12 08/02/2020 09:13:50 Administration of viral vaccine [id number] Z23 Health Concerns Section Related Observation LastModified by Organization Detai ls LastModified Time None Recorded Concern Status LastModified by Organization Details LastModified Time None Recorded Advance Directives Directive None Recorded Payers Insurance Date Sequence Insurance Name Policy Number Policy Colon Covered Member ID Colon Member ID Guarantor Name 07/30/2020 1 [place] [employer] Elisha Ramires [id number] Elisha Ramires 07/30/2020 2 [facility] PL[facility] F (MEDICARE SUPPLEMENT) [id number] Elisha Ramires [id number] Elisha Ramires OBGyn Episode No OBEpisode recorded.
== END 2025-05-05 10:28 | disposition home or self-care (01) ==
LOC: HO.HOS 10:15
PROVIDERS: Visit Provider Physician Assistant
DX: M17.12 Unilateral primary osteoarthritis, left knee (principal)
CPT/HCPCS: 20610

== ENCOUNTER → 2025-05-05 10:14 | Outpatient (BNVA) | payer MEDICARE, OTHER, SELFPAY | PROVIDERS: Visit Provider Physician Assistant | DX: M17.12 Unilateral primary osteoarthritis, left knee (principal) | CPT/HCPCS: 20610; J0665; J1100; J2003 ==

== ENCOUNTER 2025-05-19 13:07 | Outpatient (REF) | payer MEDICARE, OTHER, SELFPAY ==
--- NOTE | 2025-05-19 13:11 | EMG_ITS ---
Chief complaint: Chronic numbness/pain on left foot, see my last note Reason for referral: Evaluate for peroneal neuropathy versus lumbar radiculopathy Procedure done: Left lower extremity NCS/EMG Precautions and/or limitations: None The limb temperature was monitored continuously and remained between 32-36 degrees C during the performance of the NCS. Nerve Conduction Studies Anti Sensory Summary Table ?Stim Site NR Onset (ms) Norm Onset (ms) Peak (ms) Norm Peak (ms) O-P Amp (?V) Norm O-P Amp Site1 Site2 Delta-0 (ms) Dist (cm) Kyle (m/s) Norm Kyle (m/s) Left Sup Peron Anti Sensory (Ankle) Lateral Leg NR <4.4 >5.0 Lateral Leg Ankle 14.0 Left Sural Anti Sensory (Lat Mall) Calf ? 2.0 2.4 <4.0 8.6 >5.0 Calf Lat Mall 2.0 14.0 70 Motor Summary Table ?Stim Site NR Onset (ms) Norm Onset (ms) O-P Amp (mV) Norm O-P Amp iAmp (mV) Amp (1st) (%) Site1 Site2 Delta-0 (ms) Dist (cm) Kyle (m/s) Norm Kyle (m/s) Left Peroneal Motor (Ext Dig Brev) Ankle ? 5.0 <4.0 4.4 >2.5 5.2 100.0 Ankle Ext Dig Brev 5.0 0.0 B Fib ? 10.4 4.3 5.0 97.7 B Fib Ankle 5.4 27.5 51 >40 Poplt ? 11.2 4.7 5.8 106.8 Poplt B Fib 0.8 3.5 44 >40 Left Tibial Motor (Abd Huntley Brev) Ankle ? 4.1 <5 10.7 >2.5 13.7 100.0 Ankle Abd Huntley Brev 4.1 0.0 Knee ? 11.7 8.1 11.7 75.7 Knee Ankle 7.6 44.0 58 >40 EMG ?Side Muscle Nerve Root Ins Act Fibs Psw Amp Dur Poly Recrt Int Pat Comment Left AbdHallucis MedPlantar S1-2 Nml Nml Nml Nml Nml 0 Nml Complete Left AntTibialis Dp Br Peron L4-5 Nml Nml Nml Nml Nml 0 Nml Complete Left MedGastroc Tibial S1-2 Nml Nml Nml Nml Nml 0 Nml Complete Left VastusMed Femoral L2-4 Nml Nml Nml Nml Nml 0 Nml Complete Left Peroneus Long Sup Br Peron L5-S1 Nml Nml Nml Nml Nml 0 Nml Complete FINDINGS: Left peroneal nerve showed prolonged distal latency, normal amplitude and slow mildly conduction velocity across fibular neck. Left superficial peroneal sensory nerve showed absent response. All other nerves tested were within normal. Concentric needle EMG was performed in selected muscles of the left lower extremity. Study did not reveal signs of electric abnormalities as shown in the table above. IMPRESSION: 1. This is an abnormal study. 2. 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 3. There is no electrodiagnostic evidence for tibial neuropathy, lumbosacral plexopathy, lumbar radiculopathy, or peripheral neuropathy. CLINICAL COMMENT: Common peroneal neuropathy would explain her symptoms. Discussed with patient. Thank you for your kind referral. Bárbara Grewal MD, MIKAYLA Board Certified, [place] [employer] (ABPMR) Board Certified, [place] [employer] (ABEM) CODIN 63145 cm when extremity MTDD
== END 2025-05-19 13:08 | disposition home or self-care (01) ==
LOC: HO.NEURO 13:07
PROVIDERS: Visit Provider Physical Medicine & Rehabilitation
DX: R20.0 Anesthesia of skin (principal); T25.022A Burn of unspecified degree of left foot, initial encounter; M79.672 Pain in left foot; R20.2 Paresthesia of skin
CPT/HCPCS: 95886; 95908

== ENCOUNTER → 2025-05-19 13:11 | Outpatient (BNV) | payer MEDICARE, OTHER, SELFPAY | PROVIDERS: Visit Provider Physical Medicine & Rehabilitation | DX: S84.12XA Injury of peroneal nerve at lower leg level, left leg, initial encounter (principal); T25.022A Burn of unspecified degree of left foot, initial encounter; G62.89 Other specified polyneuropathies | CPT/HCPCS: 95886; 95908 ==